=== PATIENT | female | born 1980 | race Caucasian/White ===

== ENCOUNTER → 2021-02-27 13:02 | Outpatient (CLI) | payer BC, SELFPAY ==
--- NOTE | ~2021-02-27 | XR_ITS ---
XR lumbar spine 2-3V 02/27/2021 13:27 Indication: Low back pain Procedure: 3 views lumbar spine Comparison: No prior studies for comparison. Findings: Normal lumbar lordosis. Vertebral body and disc heights are preserved. Pedicles intact. Sac ral foramen are symmetric. No fracture, subluxation or spondylolisthesis. Impression: 1: Mild lumbar spondylosis. Reviewed, dictated and finalized at location A. Impression: 1: Mild lumbar spondylosis.
== END ==
PROVIDERS: PCP Family Medicine
DX: M47.26 Other spondylosis with radiculopathy, lumbar region (principal)
CPT/HCPCS: 72100

== ENCOUNTER → 2021-03-15 09:48 | Outpatient (CLI) | payer BC, SELFPAY ==
--- NOTE | ~2021-03-15 | MR_ITS ---
EXAMINATION: MR lumbar spine wo con DATE: 03/15/2021 10:33 INDICATION: Low back pain. TECHNIQUE: Magnetic resonance imaging (MRI) of the lumbar spine was performed without intravenous con trast. Sequences included sagittal T2-weighted FSE, sagittal T2-weighted FS FSE, sagittal T1-weighted FSE, and axial T2-weighted FSE. COMPARISON: Lumbar spine radiographs 02/27/2021 FINDINGS: Bone alignment is normal. Vertebral body heights are normal. Intervertebral disc heights ar e normal. The distal spinal cord signal intensity is normal. The conus medullaris is at L1-L2. The fo llowing disc levels are specifically discussed: L1-L2: The disc does not extend beyond the endplate margin. There is mild bilateral facet joint osteo arthritis. There is no neural foraminal stenosis. There is no central canal stenosis. L2-L3: The disc is mildly bulging. There is mild bilateral facet joint osteoarthritis. There is mild right neural foraminal stenosis. There is no central canal stenosis. L3-L4: The disc is bulging and abuts the left L4 nerve root in left lateral recess. There is mild layton ateral facet joint osteoarthritis. There is mild right and moderate left neural foraminal stenosis. T here is mild central canal stenosis with asymmetric stenosis of left lateral recess. L4-L5: The disc is bulging. There is mild bilateral facet joint osteoarthritis. There is mild bilater al neural foraminal stenosis. There is mild central canal stenosis. L5-S1: The disc is bulging. There is mild bilateral facet joint osteoarthritis. There is mild bilater al neural foraminal stenosis. There is mild central canal stenosis. IMPRESSION: 1. Moderate spondylosis at L3-L4 and mild spondylosis at other levels. Reviewed, dictated and finalized at location A.
== END ==
PROVIDERS: PCP Family Medicine; Visit Provider Chiropractor
DX: M54.5 Low back pain (principal); M47.816 Spondylosis without myelopathy or radiculopathy, lumbar region
CPT/HCPCS: 72148

== ENCOUNTER 2021-03-25 09:49 | Outpatient (CLI) | payer BC, SELFPAY ==
--- NOTE | 2021-03-25 10:02 | ECG_ITS ---
Measurements Intervals [place] Rate: 58 P: 30 NE: 142 QRS: -10 QRSD: 104 T: 15 QT: 383 QTc: 378 Interpretive Statements SINUS BRADYCARDIA INCOMPLETE RIGHT BUNDLE BRANCH BLOCK BORDERLINE ECG Electronically Signed On 03-25-2021 12:22:32 CDT by Rory Jefferson D.O.
== END 2021-03-25 09:50 | disposition home or self-care (01) ==
LOC: ANHCARD 09:51
PROVIDERS: PCP Family Medicine; Visit Provider Physician Assistant
DX: R07.9 Chest pain, unspecified (principal)
CPT/HCPCS: 93005

== ENCOUNTER 2022-04-02 16:38 | Outpatient (CLI) | payer BC, SELFPAY ==
--- NOTE | ~2022-04-02 | MM_ITS ---
EXAMINATION: MM screening [facility] BI w karen HISTORY: Screening TECHNIQUE: Craniocaudal and mediolateral oblique 3-D tomosynthesis images were obtained and synthetic 2-D images were generated. CAD analysis was submitted and interpreted. COMPARISON: Comparison to multiple prior studies sequentially, with oldest reviewed study dated 04/2018. BREAST PARENCHYMAL COMPOSITION: Breast composed of scattered areas of fibroglandular density FINDINGS: There is no evidence of suspicious mass, calcification, or architectural distortion to sugg est malignancy in either breast. There has been no suspicious interval change. IMPRESSION: 1. No mammographic evidence of malignancy. 2. Recommend routine screening mammography in one year. BI-RADS Category 1: Negative Reviewed, dictated and finalized at location A.
== END 2022-04-02 16:39 | disposition home or self-care (01) ==
PROVIDERS: PCP Family Medicine; Visit Provider Obstetrics & Gynecology Gynecology
DX: Z12.31 Encounter for screening mammogram for malignant neoplasm of breast (principal)
CPT/HCPCS: 77063; 77067

== ENCOUNTER 2022-04-21 00:21 | Day surgery (SDC) | payer BC, SELFPAY ==
[2022-04-16 14:31] VITALS: BMI 30.2
--- NOTE | 2022-04-16 14:47 | PC.NURSE ---
Report to the Outpatient Waiting Room, entrance under the green pavilion located off [facility], at time __0800 on date _04/21/22 . OR Time: __1000 . WE WILL CALL YOU ON Thu04/18/22 IF YOUR SUEGERY TIME IS CHANGED - You and your visitor will be asked a series of questions to screen for COVID 19 for your protection. - Only one visitor is allowed at this time. - The patient visitor is requested to leave or wait in car when not with patient. - A mask is required within the hospital. Patients may have clear liquids (water, carbonated beverages, clear teas, apple juice) until 3 hours prior to surgery with a maximum of 20 ounces. - No food from midnight until time of surgery - Infants may have breast milk until 4 hours before surgery, formula 6 hours prior to surgery. - Children will be allowed to drink immediately following surgery. If applicable, please bring a bottle or sippy cup to assist with drinking. Juice, water, soda, and popsicles are readily available. For infants on formula, please bring formula the day of surgery. Pacifiers are allowed. Take the following medications with a SIP of water the morning of surgery: ____N/A Medications to discontinue per physician N/A Date to take last dose Please no make-up, nail austrian, hairspray, perfume, deodorant, or body powder the day of surgery. No jewelry (including any body piercings) or valuables the day of surgery, leave them at home. Please take a shower or bath the night before, or the morning of, surgery with an antibacterial soap. Wear comfortable, loose fitting clothing. Children are encouraged to wear pajamas. - Jewelry must be removed prior to entering the operating room. Rings and piercings that are not removed may be cut off. - The hospital will not accept responsibility for valuables. - Please leave all valuables, including medications, at home the day of surgery. If you are going home after surgery, a licensed furniture mover driver must drive you home. - NO public transportation without another adult. - We recommend that an adult stay with you for 24 hours following discharge. - We also recommend that you do not drive, make important decision, drink alcoholic beverages, or take any drugs that were not prescribed by your health care provider for at least 24 hours after your discharge time. For Pediatric surgeries, we recommend two adults accompany the child home (only one inside the building at this time). Follow any additional instructions given to you from your surgeon. If you or anyone in your household have experienced Covid symptoms in the past week, please notify your surgeon or the nurse liaison at the phone number below for possible testing. Telephone instructions given to _EVETTE and asked if any additional questions and then verbalized understanding. Patient advised to call surgeon office or pre surgery nurse liaison [phone] if any additional questions.
--- NOTE | 2022-04-21 07:31 | WPDHPUPDATE1 ---
History and Physical Update Update Date/Time: 04/21/22 07:31 History and Physical has been reviewed, including an updated exam of the patient. There are NO changes in the patient's condition. Risks, benefits, and alternatives have been discussed and questions answered. Patient agrees to proceed with procedure.
--- NOTE | 2022-04-21 07:31 | PM.HPGS ---
History of Present Illness History of Present Illness Consent: Risks, benefits, and alternatives have been discussed and questions answered. Patient agrees to proceed with procedure. Chief complaint: menorrhagia, post coital bleeding Narrative: Deidra La is a 41 year old female with menorrhagia and postcoital bleeding. Patient had a Pap and colposcopy which were normal. In addition the patient had an endometrial biopsy which was benign. Treatment options were reviewed. The patient has decided to proceed with endometrial ablation for menorrhagia and cervical ablation for postcoital bleeding. Risks of infection, bleeding, perforation, and failure were reviewed. Patient voices understanding and agrees to proceed. Review of Systems Review of Systems: not repeated day of surgery; patient states no changes in status PMFSH Past Medical History Medical History (Updated 04/21/22 @ 07:49 by Meche Ward MD) (normal spontaneous vaginal delivery) X2 Vacuum-assisted vaginal delivery X1 Surgical History Surgical History (Updated 04/21/22 @ 07:48 by Meche Ward MD) H/O LEEP 2017 for mild dysplasia H/O tubal ligation History of hysteroscopy With D&C 2017 benign Family History Family History Mother Hypertension Father Hypertension Sibling Asthma, Onset Age: 32 Social History Social History Second hand tobacco smoke exposure: No Alcohol intake: never Substance use: current Substance use type: does not use Living arrangements: with family Spiritual care concerns: No Meds Home Medications and Allergies Home Medications Medication Instructions Recorded Confirmed Type famotidine 20 mg tablet 20 mg PO DAILY #90 tabs 01/22/22 04/16/22 Rx Allergies Allergy/AdvReac Type Severity Reaction Status Date / Time meperidine Allergy Mild RESPIR. Verified 04/16/22 14:44 DISTRESS Penicillins Allergy Unknown Unknown Verified 04/16/22 14:44 adhesive tape AdvReac Mild REDNESS TO Verified 04/16/22 14:44 AREA IF ON FOR AWHILE Exam Const: General: healthy appearing and alert Orientation/consciousness: patient oriented x3 Resp: Effort & Inspection: normal respiratory effort Auscultation: clear to auscultation bilaterally Cardio: Rate: regular rate Rhythm: regular rhythm GI: GI Palp: Yes Soft to palpation, No Tenderness to palpation present (GI) and No Palpable mass present : External Female Exam: normal external appearance Speculum Exam - Vagina: normal appearance of the vagina and normal vaginal discharge Speculum Exam - Cervix: normal appearance of the cervix Bimanual exam- vagina & uterus: uterine size normal and consistency normal Bimanual Exam- Adnexa, other: normal adnexae and No adnexal tenderness Neuro: General: patient oriented x3 Assessment and Plan Assessment and plan (1) Menorrhagia: Code(s): N92.0 - Excessive and frequent menstruation with regular cycle Status: Acute Assessment and Plan: Plan to proceed with hysteroscopy and Karissa endometrial ablation (2) Postcoital bleeding: Code(s): N93.0 - Postcoital and contact bleeding Status: Acute Assessment and Plan: Plan to proceed with cervical ablation
--- NOTE | 2022-04-21 08:31 | P.PNAN_ITS ---
Anes - Initial Pre Proc Eval Procedure: Operation Date: 04/21/22 10:00 Proposed Procedures p Hysteroscopy with Karissa Endometrial Ablation, Cervical Ablation - Meche Ward MD Date/Time: 04/21/22 08:31 Surgeon: Meche Ward MD Pre Op Diagnosis: menorrhagia, post coital bleeding Patient Data Age: 41 Gender: F Height: 1.73 m Weight: 90 kg Allergies Allergy/AdvReac Type Severity Reaction Status Date / Time meperidine Allergy Mild RESPIR. Verified 04/16/22 14:44 DISTRESS Penicillins Allergy Unknown Unknown Verified 04/16/22 14:44 adhesive tape AdvReac Mild REDNESS TO Verified 04/16/22 14:44 AREA IF ON FOR AWHILE Home Medications Medication Instructions Recorded Confirmed Type famotidine 20 mg tablet 20 mg PO DAILY #90 tabs 01/22/22 04/16/22 Rx Patient hx anesthesia problems: none Family hx anesthesia problems: none Results Review: All pre-operative results and documents have been reviewed as part of the pre- operative evaluation. [facility] Surgical History Surgical History H/O LEEP 2017 for mild dysplasia H/O tubal ligation History of hysteroscopy With D&C 2017 benign Family History Family History Mother Hypertension Father Hypertension Sibling Asthma, Onset Age: 32 Social History Social History Second hand tobacco smoke exposure: No Alcohol intake: never Substance use: current Substance use type: does not use Living arrangements: with family Spiritual care concerns: No Anes - Eval Final PreProcedure Day of Procedure 04/21/22 08:31 Patient weight: overweight Heart: regular rate and rhythm Lungs: clear to auscultation Airway: Mallampati scale class II Neurological: alert and oriented Last oral intake: >/= 8 hours ASA classification: II Emergent: no Anesthetic plan: proceed Anesthesia type and monitoring: general GIVS and standard monitoring Results Review: All pre-operative results and documents have been reviewed as part of the pre- operative evaluation. Informed Consent: The patient's anesthetic plan and its attendant risks and benefits were discussed with the patient/family/POA. Questions were solicited and answers provided to the satisfaction of the patient/family/POA.
[2022-04-21] MEDS: LACTATED RINGERS 1,000 ML 30 ML IV CONT (09:00)
[2022-04-21] MEDS: ACETAMINOPHEN 500 MG TABLET 1000 MG PO (09:00)
[2022-04-21 09:18] VITALS: BP 120/70; PULSE 72; RESP 16; TEMP 37.1; O2SAT 100
[2022-04-21] MEDS: LIDO 1%/EPINEPHRINE 1:100,000 10 ML VIAL INFILTRATE (09:50)
--- NOTE | 2022-04-21 09:55 | W.PM.PROC2 ---
Procedure Note - Detailed Date of Procedure 04/21/22 Pre-op Diagnosis menorrhagia, post coital bleeding Post-op Diagnosis Same Procedure Performed hysteroscopy with Karissa endometrial ablation; cervical ablation Surgeon Meche Ward MD Anesthesia MAC and Local Findings normal-appearing endometrium with the uterus sounded to 8cm Description of Procedure The patient was taken to the operating room and placed under anesthesia in the dorsal lithotomy position. She was prepped and draped in the usual sterile fashion. [place] speculum was placed in the vagina and the cervix grasped on the anterior lip with a tenaculum. The cervix was injected with 1% lidocaine with epinephrine. The uterus is sounded to 8cm. The cervix is serially dilated to an 8 Hegar. The diagnostic hysteroscope was placed with the above-stated findings. The hysteroscope was removed and the Karissa device opened and placed. It was set on 5cm. Cavity assessment passed on the 1st attempt and the treatment cycle lasted the entire 2minutes. The device is removed and the hysteroscope replaced. Good ablation effect is noted. The hysteroscope was removed. The tenaculum is removed. The ball electrode was then used at 45 w of coagulation to coagulate the cervix with approximately a 1cm radius around the os. All instruments were then removed. Sponge, needle, and instrument counts are correct per the OR staff. The patient is awakened from anesthesia and taken to recovery in stable condition. Estimated Blood Loss 5 Drains No Packing No Pathology None sent Complications No immediate complications Condition Stable Disposition PACU
[2022-04-21 09:56] VITALS: BP 111/62; PULSE 77; RESP 16; O2SAT 98
[2022-04-21 10:26] VITALS: BP 116/64; PULSE 75; RESP 16
[2022-04-21] MEDS: ARTIFICIAL TEARS OPHTH SOLN 15 ML BOTTLE 1 DROP EACH EYE (10:26)
[2022-04-21] MEDS: oxyCODONE HCL (*CRX) 5 MG TAB IR PO (10:26)
[2022-04-21] MEDS: fentaNYL CITRATE INJ (*CRX) 100 MCG/2 ML VIAL 25 MCG IV PUSH ×3 (10:50→11:45)
[2022-04-21 10:56] VITALS: BP 112/42; PULSE 82; RESP 16
[2022-04-21] MEDS: ONDANSETRON INJ 4 MG/2 ML VIAL IV PUSH (11:17)
[2022-04-21 11:26] VITALS: BP 134/64; PULSE 84; RESP 16
--- NOTE | 2022-04-21 11:35 | SUR.PHASEII ---
Paged Dr. Ward regarding patient's increased pain after procedure and patient requesting prescription for pain medication upon discharge.
[2022-04-21 11:49] VITALS: BP 126/63; PULSE 75; RESP 16
== END 2022-04-21 11:55 | disposition home or self-care (01) ==
PROVIDERS: PCP Family Medicine; Visit Provider Obstetrics & Gynecology Gynecology
PROC: 0U5B8ZZ Destruction of Endometrium, Via Natural or Artificial Opening Endoscopic (ICD-10-PCS; CPT 58563; principal; 2022-04-21 10:00)
DX: N92.0 Excessive and frequent menstruation with regular cycle (principal); N93.0 Postcoital and contact bleeding
CPT/HCPCS: 58563; 57510; A9270; J2250; J2405; J2704; J3010; J7030; J7120

== ENCOUNTER → 2022-08-05 12:25 | Outpatient (CLI) | payer BC, SELFPAY ==
--- NOTE | ~2022-08-05 | XR_ITS ---
XR ankle LT 2V DATE: 08/05/2022 13:04 INDICATION: Injury. Pain, swelling of left ankle TECHNIQUE: 2 views COMPARISON: None FINDINGS: There is prominent anterolateral soft tissue swelling of the left ankle. No fracture or dis location of the ankle or disruption of the ankle mortise is detected. IMPRESSION: Prominent anterolateral soft tissue swelling; no fracture or dislocation Reviewed, dictated and finalized at location A. IMPRESSION: Prominent anterolateral soft tissue swelling; no fracture or disloc ation
--- NOTE | ~2022-08-05 | XR_ITS ---
XR knee LT 2V DATE: 08/05/2022 13:04 INDICATION: Injury. Knee pain and swelling. TECHNIQUE: AP and lateral views COMPARISON: 08/02/2018 left knee FINDINGS: There is mild to moderate peridiscal spurring of the patella consistent with osteoarthritis . Medial lateral compartment joint spaces are well preserved. No fracture or dislocation or joint effusion. No periosteal reaction or bone destruction. No radiopaq ue intra-articular loose body or chondral calcinosis. IMPRESSION: Mild patellofemoral osteoarthritis Reviewed, dictated and finalized at location A.
== END ==
PROVIDERS: PCP Family Medicine; Visit Provider Chiropractor
DX: M79.89 Other specified soft tissue disorders (principal); M17.12 Unilateral primary osteoarthritis, left knee
CPT/HCPCS: 73560; 73600

== ENCOUNTER → 2022-09-03 10:38 | Outpatient (CLI) | payer BC, SELFPAY ==
--- NOTE | ~2022-09-03 | MR_ITS ---
EXAMINATION: MR knee LT wo con DATE: 09/03/2022 11:19 INDICATION: Left knee pain. TECHNIQUE: Magnetic resonance imaging (MRI) of the left knee was performed without intravenous contra st. Sequences included axial PD-weighted FS FSE, coronal PD-weighted FSE and PD-weighted FS FSE, sagi ttal PD-weighted FSE, and sagittal T2-weighted FS FSE. COMPARISON: Left knee radiographs 08/05/2022 FINDINGS: Medial compartment: Medial meniscus is normal. Medial compartment cartilage is normal. There are tiny osteophytes. Lateral compartment: Lateral meniscus is normal. There is shallow partial-thickness cartilage loss of tibial condyle invol ving the central articular surface with mild subchondral edema-like marrow signal intensity. Femoral cartilage is normal. There are tiny osteophytes. Patellofemoral compartment: There is full-thickness cartilage loss of patellar lateral facet and partial thickness cartilage loss of patellar medial facet with moderate subchondral edema-like marrow signal intensity. There is full -thickness cartilage loss of proximal lateral trochlea with mild subchondral edema-like marrow signal intensity. Osteophytes are noted. Ligaments and tendons: The anterior and posterior cruciate ligaments are normal. Medial collateral ligament is normal. There is edema subjacent to the iliotibial band, which may be seen with iliotibial band friction syndrome. There is mild patellar tendinopathy. Fluid: There is a small knee joint effusion. There is trace fluid in a Mike's cyst. There is mild superfici al infrapatellar bursitis. IMPRESSION: 1. Severe chondrosis of patellofemoral compartment and mild chondrosis of lateral compartment. 2. Small knee joint effusion. 3. Edema subjacent to the iliotibial band, which may be seen with iliotibial band friction syndrome. Reviewed, dictated and finalized at location A. STER OF [place] IMPRESSION: 1. Severe chondrosis of patellofemoral compartment and mild chondrosis of later al compartment. 2. Small knee joint effusion. 3. Edema subjacent to the iliotibial band, which may be seen with iliotibial ba nd friction syndrome.
== END ==
PROVIDERS: PCP Family Medicine; Visit Provider Nurse Practitioner Family
DX: M25.562 Pain in left knee (principal); M22.2X2 Patellofemoral disorders, left knee; M25.462 Effusion, left knee; R60.9 Edema, unspecified
CPT/HCPCS: 73721

== ENCOUNTER → 2023-08-26 14:58 | Outpatient (CLI) | payer BC, SELFPAY ==
--- NOTE | ~2023-08-26 | XR_ITS ---
XR hand BI arthritis min 3V DATE: 08/26/2023 15:42 INDICATION: Osteoarthritis TECHNIQUE: 4 views of each hand COMPARISON: None FINDINGS: No fracture, dislocation, periosteal reaction or bone destruction, erosive change, signific ant joint space narrowing or chondrocalcinosis of either hand. IMPRESSION: Negative Reviewed, dictated and finalized at location A. EL SPRAYER IMPRESSION: Negative
--- NOTE | ~2023-08-26 | XR_ITS ---
XR foot LT standing 2V DATE: 08/26/2023 15:42 INDICATION: Osteoarthritis TECHNIQUE: Standing AP and lateral views COMPARISON: None FINDINGS: No fracture or dislocation, periosteal reaction or bone destruction or other significant ab normality. Joint spaces are preserved. IMPRESSION: Negative Reviewed, dictated and finalized at location A. ND WATER PUMP INSTALLER IMPRESSION: Negative
--- NOTE | ~2023-08-26 | XR_ITS ---
XR lumbar spine min 4V DATE: 08/26/2023 15:42 INDICATION: Osteoarthritis. Pain. TECHNIQUE: AP, lateral, bilateral oblique views, coned lateral lumbosacral view COMPARISON: None FINDINGS: The lumbar vertebrae are normally aligned. No fracture or bone destruction, spondylolysis o r spondylolisthesis. There is slight degenerative spurring at L3-4. Lumbar and lumbosacral interspace s are well preserved. The sacroiliac joints are intact. IMPRESSION: Minimal degenerative spurring at L3-4 Reviewed, dictated and finalized at location A. SHOVER
--- NOTE | ~2023-08-26 | XR_ITS ---
XR foot RT standing 2V DATE: 08/26/2023 15:42 INDICATION: Osteoarthritis TECHNIQUE: Standing AP and lateral views COMPARISON: None FINDINGS: There is slight plantar calcaneal enthesopathy. There is an old ununited intra-articular corner fracture of the medial head of the proximal phalanx o f the fifth toe. No recent fracture or dislocation. No periosteal reaction or bone destruction. Joint spaces appear re latively preserved. 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 RICT EXTENSION SERVICE AGENT IMPRESSION: Old ununited intra-articular fracture of the medial head of the pro ximal phalanx of the fifth toe Slight plantar calcaneal enthesopathy
--- NOTE | ~2023-08-26 | XR_ITS ---
EXAMINATION: XR sacroiliac joints min 3V INDICATION: Unspecified osteoarthritis TECHNIQUE: Three views of the sacroiliac joints are obtained. COMPARISON: None available FINDINGS: Bone alignment is normal. There is no fracture. No abnormal erosion or sclerosis of the sac roiliac joints identified. Tubal ligation clips are noted. IMPRESSION: 1. No acute osseous abnormality. Reviewed, dictated and finalized at location F. RNAL MEDICINE PHYSICIAN
== END ==
PROVIDERS: Visit Provider Internal Medicine
DX: M19.90 Unspecified osteoarthritis, unspecified site (principal)
CPT/HCPCS: 72110; 72202; 73130; 73620

== ENCOUNTER 2023-09-15 00:55 | Day surgery (SDC) | payer BC, SELFPAY ==
[2023-09-02 11:22] VITALS: BMI 32.5
--- NOTE | 2023-09-11 14:18 | SUR.PREOP ---
Patient called regarding upcoming procedure. Reviewed preop instructions, appointment times, and procedure prep.
[2023-09-15 11:04] VITALS: BP 123/64; PULSE 65; RESP 20; TEMP 36.4; O2SAT 100
[2023-09-15] MEDS: LACTATED RINGERS 1,000 ML 150 ML IV CONT (11:06)
--- NOTE | 2023-09-15 12:24 | WPDANESEPPF ---
Anes - Initial Pre Proc Eval Procedure: Operation Date: 09/15/23 12:30 Proposed Procedures p Esophagogastroduodenoscopy & Colonoscopy - Yoshi Noonan MD Date/Time: 09/15/23 12:24 Surgeon: Yoshi Noonan MD Pre Op Diagnosis: epigastric pain, other chest pain Patient Data Age: 43 Gender: F Height: 1.73 m Weight: 93.4 kg Last Vital Signs Temp 97.6 F 09/15/23 11:04 Pulse 65 09/15/23 11:04 Resp 20 09/15/23 11:04 BP 123/64 09/15/23 11:04 Pulse Ox 100 09/15/23 11:04 O2 Del Method Room Air 09/15/23 11:04 Allergies Allergy/AdvReac Type Severity Reaction Status Date / Time meperidine Allergy Mild RESPIR. Verified 09/15/23 11:02 DISTRESS Penicillins Allergy Unknown Unknown Verified 09/15/23 11:02 adhesive tape AdvReac Mild REDNESS TO Verified 09/15/23 11:02 AREA IF ON FOR AWHILE Home Medications Medication Instructions Recorded Confirmed Type hydrocortisone 2.5 % topical cream 1 applic RECTAL DAILY PRN 08/06/23 09/02/23 Rx with perineal applicator hemorrhoids #30 grams omeprazole 20 mg capsule,delayed 20 mg PO DAILY #30 caps 08/06/23 09/02/23 Rx release duloxetine 30 mg capsule,delayed 30 mg PO BID #60 caps 08/26/23 09/02/23 Rx release (Cymbalta) Patient hx anesthesia problems: none Family hx anesthesia problems: none Results Review: All pre-operative results and documents have been reviewed as part of the pre-operative evaluation. [facility] Past Medical History Medical History (Updated 09/10/23 @ 15:21 by Paulo Velasco MD) Anal fissure Atypical chest pain Bilateral hand pain Colon cancer screening Counseling on health promotion and disease prevention Encounter for medication management Epigastric burning sensation External hemorrhoids Family hx of colon cancer History of right tennis elbow Inflammatory arthritis IT band syndrome Lateral epicondylitis Left ankle sprain Left knee DJD Left knee pain Medial meniscus tear Right elbow pain Surgical History Surgical History H/O LEEP 2017 for mild dysplasia H/O tubal ligation History of hysteroscopy With D&C 2017 benign Family History Family History Mother Hypertension Father Hypertension Sibling Asthma, Onset Age: 32 Other Arthritis Social History Social History Smoking status: Never smoker Second hand tobacco smoke exposure: No Substance use type: does not use Lack of Transportation: No Lack of Food: Never True Current Housing: I Have Housing Concerned About Future Housing: No Difficulty Paying Gas/Electric Bills: No Difficulty Paying for Meds: No Currently Unemployed: No Education: Decline to Answer Difficulty w/ Childcare or Family Care: No Living arrangements: other Additional living arrangements comments: with sp Gender identity (if verbalized by the patient): Female Anes - Eval Final PreProcedure Day of Procedure 09/15/23 12:24 Patient weight: normal Heart: regular rate and rhythm Lungs: clear to auscultation Airway: Mallampati scale class II Neurological: alert and oriented Last oral intake: >/= 8 hours ASA classification: II Emergent: no Anesthetic plan: proceed Anesthesia type and monitoring: general GIVS and standard monitoring Results Review: All pre-operative results and documents have been reviewed as part of the pre-operative evaluation. Informed Consent: The patient's anesthetic plan and its attendant risks and benefits were discussed with the patient/family/POA. Questions were solicited and answers provided to the satisfaction of the patient/family/POA.
--- NOTE | 2023-09-15 12:25 | PM.HPGS ---
History of Present Illness History of Present Illness Consent: Risks, benefits, and alternatives have been discussed and questions answered. Patient agrees to proceed with procedure. Chief complaint: epigastric pain, other chest pain Narrative: Deidra La is a 43 year old female with dyspepsia and epigastric pain since had COVID, better since started using ppi, never had scopes. Review of Systems Constitutional: Constitutional: Denies headache(s) and Denies weakness Eyes: Eyes: Denies blurry vision ENT: Reports Normal hearing present, Denies headache(s) and Denies neck pain Cardiovascular: Cardiovascular: Denies chest pain and Denies dyspnea Respiratory: Respiratory: Denies dyspnea Gastrointestinal: Gastrointestinal: Reports no additional gastrointestinal complaints Genitourinary: Genitourinary: Denies dysuria Musculoskeletal: Musculoskeletal: Denies neck pain Integumentary/Breasts: Skin/Breast: Denies dry skin Neurologic: Reports Normal hearing present, Denies headache(s) and Denies weakness Psychiatric: Psychiatric: Denies anxiety Endocrine: Endocrine: Denies change in body appearance Hematologic/Lymphatic: Hematologic/Lymphatic: Denies easy bleeding Allergic/Immunologic: Allergic/Immunologic: Denies urticaria PMFSH Past Medical History Medical History (Updated 09/10/23 @ 15:21 by Paulo Velasco MD) Anal fissure Atypical chest pain Bilateral hand pain Colon cancer screening Counseling on health promotion and disease prevention Encounter for medication management Epigastric burning sensation External hemorrhoids Family hx of colon cancer History of right tennis elbow Inflammatory arthritis IT band syndrome Lateral epicondylitis Left ankle sprain Left knee DJD Left knee pain Medial meniscus tear Right elbow pain Surgical History Surgical History H/O LEEP 2017 for mild dysplasia H/O tubal ligation History of hysteroscopy With D&C 2017 benign Family History Family History Mother Hypertension Father Hypertension Sibling Asthma, Onset Age: 32 Other Arthritis Social History Social History Smoking status: Never smoker Second hand tobacco smoke exposure: No Substance use type: does not use Lack of Transportation: No Lack of Food: Never True Current Housing: I Have Housing Concerned About Future Housing: No Difficulty Paying Gas/Electric Bills: No Difficulty Paying for Meds: No Currently Unemployed: No Education: Decline to Answer Difficulty w/ Childcare or Family Care: No Living arrangements: other Additional living arrangements comments: with sp Gender identity (if verbalized by the patient): Female Meds Home Medications and Allergies Home Medications Medication Instructions Recorded Confirmed Type hydrocortisone 2.5 % topical cream 1 applic RECTAL DAILY PRN 08/06/23 09/02/23 Rx with perineal applicator hemorrhoids #30 grams omeprazole 20 mg capsule,delayed 20 mg PO DAILY #30 caps 08/06/23 09/02/23 Rx release duloxetine 30 mg capsule,delayed 30 mg PO BID #60 caps 08/26/23 09/02/23 Rx release (Cymbalta) Allergies Allergy/AdvReac Type Severity Reaction Status Date / Time meperidine Allergy Mild RESPIR. Verified 09/15/23 11:02 DISTRESS Penicillins Allergy Unknown Unknown Verified 09/15/23 11:02 adhesive tape AdvReac Mild REDNESS TO Verified 09/15/23 11:02 AREA IF ON FOR AWHILE Vital Signs Vital Signs - 24 hr 09/15/23 11:04 Temperature 97.6 F Pulse Rate 65 Respiratory Rate 20 Blood Pressure 123/64 Pulse Oximetry 100 Oxygen Delivery Room Air Exam Const: General: comfortable and no acute distress HENMT: Face/Nose/Sinus: Normal nares present Eyes: General: appearance normal, both eyes and all related structure
[2023-09-15 12:47] VITALS: BP 113/56; PULSE 78; RESP 22; O2SAT 100
[2023-09-15 12:57] VITALS: BP 126/76; PULSE 74; RESP 22; O2SAT 100
[2023-09-15 13:07] VITALS: BP 132/74; PULSE 70; RESP 20; O2SAT 99
== END 2023-09-15 13:24 | disposition home or self-care (01) ==
PROVIDERS: Visit Provider Internal Medicine Gastroenterology
PROC: 0DJ08ZZ Inspection of Upper Intestinal Tract, Via Natural or Artificial Opening Endoscopic (ICD-10-PCS; CPT 43235; principal; 2023-09-15 12:30)
DX: Z12.11 Encounter for screening for malignant neoplasm of colon (principal); K64.8 Other hemorrhoids; Z80.0 Family history of malignant neoplasm of digestive organs; K44.9 Diaphragmatic hernia without obstruction or gangrene; K29.50 Unspecified chronic gastritis without bleeding
CPT/HCPCS: 45378; 43239; 88305; J2704; J7120

== ENCOUNTER 2024-03-04 13:04 | Outpatient (CLI) | payer OTHER, SELFPAY ==
--- NOTE | 2024-03-04 14:40 | ECG_ITS ---
[facility] [address] Test Date: 2024-03-04 Pat Name: Deidra La Department: Room: Gender: F [employer] [place]: : 1980 Requested By: Herminio Braxton Order Number: [id number] Robert MD: Rory Jefferson D.O. Measurements Intervals Pi[place]on Rate: 65 P: 41 MS: 143 QRS: -12 QRSD: 99 T: 2 QT: 375 QTc: 391 Interpretive Statements SINUS RHYTHM INCOMPLETE RIGHT BUNDLE BRANCH BLOCK LOW QRS VOLTAGE IN PRECORDIAL LEADS PATTERN CONSISTENT WITH PULMONARY DISEASE INFERIOR INFARCT, AGE INDETERMINATE BASELINE ARTIFACT- I, II, III, AVR, AVL, AVF ABNORMAL ECG No previous ECG available for comparison Electronically Signed On 03-04-2024 14:53:05 CDT by Rory Jefferson D.O.
[2024-03-04 15:09] LABS: Hematocrit 39.6 % (37.0-47.0); Hemoglobin 13.1 g/dL (12.0-15.0)
== END 2024-03-04 13:05 | disposition home or self-care (01) ==
PROVIDERS: Anesthesiology; PCP Family Medicine; Visit Provider Surgery Plastic and Reconstructive Surgery
DX: Z01.818 Encounter for other preprocedural examination (principal); I45.10 Unspecified right bundle-branch block; R94.31 Abnormal electrocardiogram [ECG] [EKG]; Z41.1 Encounter for cosmetic surgery
CPT/HCPCS: 36415; 85014; 85018; 93005

== ENCOUNTER 2024-03-15 01:32 | Day surgery (SDC) | payer OTHER, SELFPAY ==
[2024-03-03 13:53] VITALS: BMI 30.4
--- NOTE | 2024-03-03 13:59 | PC.NURSE ---
Report to the Outpatient Waiting Room, entrance under the green pavilion located off [facility], at time _0600_ on date _[id number]_. Planned Procedure Time: _0730_. Time changes happen often and if your time is changed the preop area will call you the afternoon before. - You and your visitor will be asked to self-screen and do not enter if you have any COVID symptoms. - A mask is optional within the hospital at this time. Patients may have clear liquids (water, carbonated beverages, clear teas, apple juice) until 3 hours prior to surgery with a maximum of 20 ounces. - No food from midnight until time of surgery Take the following medications with a SIP of water the morning of surgery: __None DO NOT STOP ANY OF YOUR OTHER PRESCRIPTION MEDICATIONS PRIOR TO SURGERY ?EXCEPT THE FOLLOWING Medications to discontinue per physician ____None Date to take last dose Please no make-up, nail azerbaijani, hairspray, perfume, deodorant, or body powder the day of surgery. No jewelry (including any body piercings) or valuables the day of surgery, leave them at home. Please take a shower or bath the night before, or the morning of, surgery with an antibacterial soap. Wear comfortable, loose fitting clothing. - Jewelry must be removed prior to entering the operating room. Rings and piercings that are not removed may be cut off. - The hospital will not accept responsibility for valuables. - Please leave all valuables, including medications, at home the day of surgery. If you are going home after surgery, a licensed limo driver must drive you home. - NO public transportation without another adult if you receive anesthesia. - We recommend that an adult stay with you for 24 hours following discharge. - We also recommend that you do not drive, make important decision, drink alcoholic beverages, or take any drugs that were not prescribed by your health care provider for at least 24 hours after your discharge time. Follow any additional instructions given to you from your surgeon. If you or anyone in your household have experienced Covid symptoms in the past week, please notify your surgeon or the nurse liaison at the phone number below for possible testing. Telephone instructions given to _Deidra_and asked if any additional questions and then verbalized understanding. Patient advised to call surgeon office or pre surgery nurse liaison [phone] if any additional questions.
[2024-03-15] VITALS (12 sets, daily range): BP systolic 130–155; BP diastolic 64–89; PULSE 63–84; RESP 13–20; TEMP 36.2–36.8; O2SAT 96–100
[2024-03-15 06:46] LABS: Urine Cotinine NEGATIVE
--- NOTE | 2024-03-15 06:59 | WPDHPUPDATE1 ---
History and Physical Update Update Date/Time: 03/15/24 06:59 History and Physical has been reviewed, including an updated exam of the patient. There are NO changes in the patient's condition. Risks, benefits, and alternatives have been discussed and questions answered. Patient agrees to proceed with procedure.
[2024-03-15] MEDS: LACTATED RINGERS 1,000 ML 30 ML IV CONT ×2 (07:00→14:54)
--- NOTE | 2024-03-15 07:00 | W.PM.PROC2 ---
Procedure Note - Detailed Date of Procedure 03/15/24 Pre-op Diagnosis skin laxity Post-op Diagnosis Same Procedure Performed 1. Kelli yadav abdominoplasty 2. Bilateral brachioplasty Surgeon Corey Johnson MD Anesthesia General Findings Tissue removed: 3516 grams Lipoaspirate: 4,200 cc (3,000 cc of adipose tissue) Description of Procedure They are here today for the above procedures. Previously and again today the risks, benefits, alternatives were discussed in extensive detail. I wanted them to be very realistic about the risks involved as well as expectations. We discussed aftercare and what to monitor for. I was very upfront about the risks of wound breakdown leading to loss of skin, open wounds, and need for additional procedures with permanent abdominal deformity. We discussed DVT/PE risks and management. Made sure answered all of their questions to their satisfaction today and consent was obtained. They were marked in the preoperative holding area with their verification. The patient was taken to the operating room. Anesthesia was provided by anesthesiology. A Herman catheter was started. Posterior Placed prone on the operating room table with care taken to protect from injury. Prepped and draped in a standard sterile fashion. A surgical time-out was taken. Stab incisions were made and tumescent solution was infiltrated. Once adequate time was allowed for hemostasis a 5mm basket and 3mm multi hole cannula were utilized to complete suction lipectomy based on S.A.F.E. technique in multiple planes and passes. Suction lipectomy continued to result based on pre-operative planning, intra-operative observation, and rolling pinch test which were in full agreement. Sites closed with 4-0 Nylon. Arms Patient was then placed supine with care taken to protect from injury. Stab incisions were made and I tumesced with a tumescent solution. Once adequate time for hemostasis suction lipectomy was with a 4 mm basket cannula based on S.A.F.E. technique. This was completed based on preoperative planning, intraoperative observation, and rolling pinch test which was in full agreement. I completely de-fatted the planned resection area and a strip avulsion technique was completed. Starting proximal to distal a 10 blade was used to excise the intervening skin and this was tacked as we proceed to ensure good closure. This was closed using a 2-0 Quill, 3-0 strata fix, running subcuticular 4-0 Monocryl, and tissue glue. Abdomen I placed the patient in a flexed position to verify the upper and lower markings would reach. Verified my planned vertical reseection at the same time. I then placed supine. A thorough abdominal examination was completed. Stab incisions were made and tumescent solution infiltrated. Stab incisions were made and tumescent solution was infiltrated. Once adequate time was allowed for hemostasis a 5mm basket and 3mm multi hole cannula were utilized to complete suction lipectomy based on S.A.F.E. technique in multiple planes and passes. Suction lipectomy continued to result based on pre-operative planning, intra-operative observation, and rolling pinch test which were in full agreement. A 10 blade was used to make the upper incision as well as along the vertical. I continued dissection down to the level of fascia. Elevated just what was necessary for repair of the diastasis, there was no undermining. I then again flexed the bed to verify the upper skin flap would reach the lower markings without tension. Once verified I placed her supine once again and a 10 blade used to make the lower incision. I elevated up to level the umbilicus and left the umbilicus intact on a well-vascularized stalk. The intervening tissue was removed. A 2 mm blunt cannula with 0.5% bupivacaine was injected deep to the fascia bilaterally. I plicated the diastasis recti using 0 PDO Stratafix barbed suture. This was in 2 separate layers
--- NOTE | 2024-03-15 07:06 | WPDANESEPPF ---
Anes - Initial Pre Proc Eval Procedure: Operation Date: 03/15/24 07:30 Proposed Procedures p Kelli De Nisha Abdominoplasty with Liposuction - Corey Johnson MD s Bilateral Brachioplasty - Corey Johnson MD Date/Time: 03/15/24 07:06 Surgeon: Corey Johnson MD Pre Op Diagnosis: skin laxity Patient Data Age: 43 Gender: F Height: 1.73 m Weight: 90.9 kg Allergies Allergy/AdvReac Type Severity Reaction Status Date / Time meperidine Allergy Mild RESPIR. Verified 03/15/24 06:31 DISTRESS Penicillins Allergy Unknown Unknown Verified 03/15/24 06:31 adhesive tape AdvReac Mild REDNESS TO Verified 03/15/24 06:31 AREA IF ON FOR AWHILE Home Medications Medication Instructions Recorded Confirmed Type famotidine 20 mg tablet 20 mg PO DAILY #90 tabs 12/24/23 03/15/24 Rx Laboratory Tests 03/15/24 06:26 Cotinine Negative Patient hx anesthesia problems: none Family hx anesthesia problems: none Results Review: All pre-operative results and documents have been reviewed as part of the pre-operative evaluation. [facility] Past Medical History Medical History Anal fissure Atypical chest pain Bilateral hand pain Colon cancer screening Counseling on health promotion and disease prevention Encounter for medication management Epigastric burning sensation External hemorrhoids Family hx of colon cancer History of right tennis elbow Inflammatory arthritis IT band syndrome Lateral epicondylitis Left ankle sprain Left knee DJD Left knee pain Medial meniscus tear Right elbow pain Surgical History Surgical History H/O LEEP 2017 for mild dysplasia H/O tubal ligation History of hysteroscopy With D&C 2017 benign Family History Family History Mother Hypertension Father Hypertension Sibling Asthma, Onset Age: 32 Other Arthritis Social History Social History Smoking status: Never smoker Second hand tobacco smoke exposure: No Substance use type: does not use Lack of Transportation: No Lack of Food: Never True Current Housing: I Have Housing Concerned About Future Housing: No Difficulty Paying Gas/Electric Bills: No Difficulty Paying for Meds: No Currently Unemployed: No Education: Decline to Answer Difficulty w/ Childcare or Family Care: No Living arrangements: with family Additional living arrangements comments: with sp Gender identity (if verbalized by the patient): Female Spiritual care concerns: No Anes - Eval Final PreProcedure Day of Procedure 03/15/24 07:06 Patient weight: obese Heart: regular rate and rhythm Lungs: clear to auscultation Airway: Mallampati scale class II Neurological: alert and oriented Last oral intake: >/= 8 hours ASA classification: II Emergent: no Anesthetic plan: proceed Anesthesia type and monitoring: general ETT and standard monitoring Results Review: All pre-operative results and documents have been reviewed as part of the pre-operative evaluation. Informed Consent: The patient's anesthetic plan and its attendant risks and benefits were discussed with the patient/family/POA. Questions were solicited and answers provided to the satisfaction of the patient/family/POA.
[2024-03-15] MEDS: TRANEXAMIC ACID 1,000MG/ISO100 1,000 MG/100 ML BAG 200 MG IVPB (07:31)
[2024-03-15] MEDS: BUPIVACAINE/EPINEPHRINE 0.5% 10 ML VIAL 60 ML INFILTRATE (07:37)
[2024-03-15] MEDS: LACTATED RINGERS IRRIG 1,000 ML, LIDOCAINE HCL 1% LOCAL INJ 50 ML, EPINEPHrine HCL INJ ... INFILTRATE (07:37)
[2024-03-15] MEDS: ceFAZolin 2 GM/D5W 50 ML 2 GM/50 ML BAG IVPB ×2 (07:49→11:49)
[2024-03-15] MEDS: fentaNYL CITRATE INJ (*CRX) 100 MCG/2 ML VIAL 25 MCG IV PUSH ×5 (15:00→15:53)
[2024-03-15] MEDS: ONDANSETRON INJ 4 MG/2 ML VIAL IV PUSH (15:28)
--- NOTE | 2024-03-15 15:35 | SUR.PHASEI ---
Simple mask removed at 1519
[2024-03-15] MEDS: oxyCODONE HCL (*CRX) 5 MG TAB IR PO (16:25)
--- NOTE | 2024-03-15 17:41 | SUR.PHASEII ---
1710 WHILE AMBULATING TO RESTROOM PT FELT LIKE SHE WAS GOING TO PASS OUT. ASSISTED BACK TO RECLINER. PT NEVER LOST CONSCIOUSNESS. VOICING CONCERN THAT SHE WANTS TO STAY THE NIGHT. DR GALEANA CALLED & TOLD ABOUT PTS REQUEST. DR GALEANA ADMITTING PT.
--- NOTE | 2024-03-15 18:27 | PC.NURSE ---
This patient, Deidra La, was received from PACU on 03/15/24 at 1756. Patient/family oriented to unit policies and routines
[2024-03-15] MEDS: carisoprodoL (*CRX) 350 MG TABLET PO (20:10)
[2024-03-15] MEDS: KETOROLAC 10 MG TABLET PO (20:10)
[2024-03-15] MEDS: LACTATED RINGERS 1,000 ML 125 ML IV CONT (20:37)
[2024-03-15] MEDS: DOCUSATE SODIUM 100 MG CAPSULE PO (21:00)
[2024-03-15] MEDS: MORPHINE SULFATE (*CRX) 2 MG/ML INJ IV PUSH (22:35)
[2024-03-16] MEDS: carisoprodoL (*CRX) 350 MG TABLET PO ×3 (00:20→13:31)
[2024-03-16] MEDS: KETOROLAC 10 MG TABLET PO ×3 (00:20→13:31)
[2024-03-16 00:34] VITALS: BP 129/53; PULSE 90; RESP 16; RESP 18; TEMP 36.9; O2SAT 97
[2024-03-16 04:58] VITALS: BP 120/59; PULSE 93; RESP 18; TEMP 37.2; O2SAT 96
[2024-03-16] MEDS: ONDANSETRON INJ 4 MG/2 ML VIAL IV PUSH (05:20)
[2024-03-16] MEDS: MORPHINE SULFATE (*CRX) 2 MG/ML INJ IV PUSH (05:20)
--- NOTE | 2024-03-16 06:24 | WPDPN ---
Progress Note: A&P Assessment and Plan (1) Skin laxity: Code(s): L57.4 - Cutis laxa senilis Status: Acute Assessment and Plan: Doing well after bilateral brachioplasty and progressive tension abdominoplasty with suction lipectomy . Will discharge home. Today we had a lengthy discussion about the care. Activity limitations. What to monitor for. What is an emergency and when to dial 911 / proceed to the ER. This was a lengthy open ended conversation making sure they were well informed. Answered all their questions. They voiced a clear understanding. Will discharge home. Call with any questions or concerns in the meantime. (2) Localized adiposity: Code(s): E65 - Localized adiposity Status: Acute Subjective Date/time seen: 03/16/24 06:24 Interval history: She is doing well after bilateral brachioplasty and progressive tension abdominoplasty with suction lipectomy. Ambulating. Pain controlled. No f/c. No n/v. Review of Systems Review of Systems: All systems reviewed & are unremarkable except as noted in HPI and below Exam Narrative: Alert & Oriented NOD Respiratory unlabored Bilateral arms healing well. Soft. No hematoma. No seroma. Normal hand sensation and full ROM. Abdomen is healing well. No signs of infection. No hematoma. No seroma. Good color and capillary refill. No calf tenderness. Negative Timothy's Drain removed Objective Data Vital Signs Vital Signs: Vital Signs - 24 hr 03/15/24 07:27 03/15/24 14:54 03/15/24 15:05 Temperature 36.4 C 36.2 C L Pulse Rate 66 76 66 Respiratory Rate 16 20 18 Blood Pressure 130/77 132/70 139/76 Pulse Oximetry 100 97 100 Oxygen Delivery Room Air Simple Face Mask Simple Face Mask Oxygen Flow Rate 8 8 03/15/24 15:20 03/15/24 15:35 03/15/24 15:50 Temperature 36.4 C Pulse Rate 65 65 63 Respiratory Rate 15 13 15 Blood Pressure 152/76 H 149/73 H 154/80 H Pulse Oximetry 100 96 100 Oxygen Delivery Room Air Room Air Room Air Oxygen Flow Rate 03/15/24 16:00 03/15/24 16:04 03/15/24 16:30 Temperature 36.3 C L Pulse Rate 67 84 82 Respiratory Rate 15 16 16 Blood Pressure 144/74 H 155/76 H 148/89 H Pulse Oximetry 100 Oxygen Delivery Room Air Oxygen Flow Rate 03/15/24 17:30 03/15/24 17:00 03/15/24 20:46 Temperature Pulse Rate 72 70 74 Respiratory Rate 14 16 16 Blood Pressure 151/76 H 143/64 H Pulse Oximetry 98 Oxygen Delivery Room Air Oxygen Flow Rate 03/15/24 20:46 03/16/24 00:34 03/16/24 00:34 Temperature 36.8 C 36.9 C Pulse Rate 74 90 90 Respiratory Rate 16 16 18 Blood Pressure 152/67 H 129/53 L Pulse Oximetry 98 97 97 Oxygen Delivery Room Air Oxygen Flow Rate Intake/Output Intake/Output: Intake & Output 03/13/24 03/14/24 03/15/24 03/16/24 23:59 23:59 23:59 23:59 Intake Total 600 Balance 600 Meds/Results Medications: Active Medications Generic Name Dose Route Start Last Admin Trade Name Freq PRN Reason Stop Dose Admin Carisoprodol 350 mg 03/15/24 18:00 03/16/24 00:20 Carisoprodol (*Crx) 350 Mg Tablet PO 350 mg Q6HR ABDULLAHI Administration Diazepam 5 mg 03/15/24 17:31 Diazepam (*Crx) 5 Mg Tablet PO TID PRN Anxiety Docusate Sodium 100 mg 03/15/24 21:00 03/15/24 21:00 Docusate Sodium 100 Mg Capsule PO 100 mg Q12HR ABDULLAHI Administration Enoxaparin Sodium 40 mg 03/16/24 09:00 Enoxaparin 40 Mg/0.4 Ml Syringe SUB-Q DAILY ABDULLAHI Famotidine 20 mg 03/16/24 09:00 Famotidine 20 Mg Tablet PO DAILY ABDULLAHI Lactated Ringer's 1,000 mls @ 125 mls/hr 03/15/24 17:35 03/15/24 20:37 Lr - Lactated Ringers Iv IV CONT 125 mls/hr .Q8H ABDULLAHI Administration Ketorolac Tromethamine 10 mg 03/15/24 18:00 03/16/24 00:20 Ketorolac 10 Mg Tablet PO 03/17/24 12:01 10 mg Q6HR ABDULLAHI Administration Morphine Sulfate 2 mg 03/15/24 17:31 03/16/24 05:20 Morphine Sulfate (*Crx) 2 Mg/Ml Inj IV PUSH
--- NOTE | 2024-03-16 06:26 | P.DS_ITS ---
DS: Admitting Diagnosis Discharge Date 03/16/2024 Admitting Diagnosis Skin laxity Localized adiposity DS: Discharge Diagnosis Discharge Diagnosis (1) Skin laxity: Code(s): L57.4 - Cutis laxa senilis Status: Acute (2) Localized adiposity: Code(s): E65 - Localized adiposity Status: Acute DS: Summary Hospital Course Hospital Course: She underwent bilateral brachioplasty and progressive tension abdominoplasty with suction lipectomy. Postoperativly has done well. Ambulating. Pain controlled. Tolerating PO. Will discharge home. Time Spent with Patient Time attestation: Total time spent providing and/or coordinating discharge services: Exam Narrative: Alert & Oriented NOD Respiratory unlabored Bilateral arms healing well. Soft. No hematoma. No seroma. Normal hand sensation and full ROM. Abdomen is healing well. No signs of infection. No hematoma. No seroma. Good color and capillary refill. No calf tenderness. Negative Timothy's DS: Data Data Completed and Pending Labs on day of discharge: Labs from last 24 hours 03/15/24 06:26 Cotinine Negative Discharge Plan Discharge Patient Disposition: Home, Self-Care Discharge Instructions: POST OPERATIVE DISCHARGE INSTRUCTIONS COREY JOHNSON M.D. [facility] [address] [place] [address] * No driving for 24 hours after anesthesia and while you are taking pain medication. * Take all prescribed medication as directed * Diet as tolerated. * No lifting or activity that raises blood pressure for 48 hours. * Regular walking / ambulation. * May shower 24 hours after surgery. Once you shower do not take pain medication before showering as the combination of medication and heat may cause you to feel dizzy or pass out. * No pools or tubs for 2 weeks. * Slowly stand up straight as tolerated. * No straining or lifting more than 20 pounds. * If no bowel movement within 24 hours may use laxative. * Call with any questions or concerns. * Dressing Care: Continue abdominal binder / foam / arm wraps 23 hours per day. Adjust tension as needed. If you have any questions or concerns, please call the office . If it is after hours you will be directed to the inclusion internship exchange. Shortness of breath, chest pain, or other medical emergency dial 911 / proceed to the Emergency Room. Anesthesia used a medication called Sugammadex, female patients may need a second line of protection during sexual activity as this medication can limit control for 7 days following administration. OXYCODONE 5MG GIVEN TO YOU AT 4:25PM. DO NOT TAKE ADDITIONAL PRESCRIPTION PAIN MEDICATION UNTIL AFTER 8:25PM TODAY. Stand Alone Forms: General Discharge Instructions Follow-up/Referrals: Corey Johnson MD [Physician] - Other (Tomorrow 03/16/2024) Discharge Medications: Continued famotidine 20 mg tablet 20 mg PO DAILY Qty: 90 2RF
[2024-03-16 08:25] VITALS: BP 122/60; PULSE 96; RESP 18; TEMP 37.1; O2SAT 95
[2024-03-16] MEDS: oxyCODONE/ACETAMINOPHEN (*CRX) 5-325 MG TABLET PO ×3 (10:12→16:54)
[2024-03-16] MEDS: DOCUSATE SODIUM 100 MG CAPSULE PO (10:12)
[2024-03-16] MEDS: ENOXAPARIN 40 MG/0.4 ML SYRINGE SUB-Q (10:14)
[2024-03-16] MEDS: FAMOTIDINE 20 MG TABLET PO (10:14)
== END 2024-03-16 17:45 | disposition home or self-care (01) ==
LOC: ANHSURGERY 16:44 → ANHOB2 17:50
PROVIDERS: PCP Family Medicine; Visit Provider Surgery Plastic and Reconstructive Surgery
PROC: (CPT 15836; principal; 2024-03-15 07:30)
PROC: (CPT 15836; 2024-03-15 07:30)
DX: Z41.1 Encounter for cosmetic surgery (principal); L57.4 Cutis laxa senilis; E65 Localized adiposity; E66.9 Obesity, unspecified; Z68.32 Body mass index [BMI] 32.0-32.9, adult
CPT/HCPCS: 15836; 15830; 15847; 15877; 15878; 80307; 99199; A9270; J0171; J0690; J1100; J1170; J1596; J1650; J2250; J2270; J2405; J2704; J3010; J7120

== ENCOUNTER 2024-07-19 14:03 | Outpatient (CLI) | payer BC, SELFPAY ==
--- NOTE | ~2024-07-19 | MM_ITS ---
EXAMINATION: MM screening radha BI w karen HISTORY: Screening TECHNIQUE: Craniocaudal and mediolateral oblique 3-D tomosynthesis images were obtained and synthetic 2-D images were generated. CAD analysis was submitted and interpreted. COMPARISON: Comparison to multiple prior studies sequentially, with oldest reviewed study dated 04/2018. BREAST PARENCHYMAL COMPOSITION: Not dense: There are scattered areas of fibroglandular density. FINDINGS: There is no evidence of suspicious mass, calcification, or architectural distortion to sugg est malignancy in either breast. There has been no suspicious interval change. IMPRESSION: 1. No mammographic evidence of malignancy. 2. Recommend routine screening mammography in one year. BI-RADS Category 1: Negative Reviewed, dictated and finalized at location B.
== END 2024-07-19 14:04 | disposition home or self-care (01) ==
LOC: ANHIMG 14:04
PROVIDERS: PCP Family Medicine; Visit Provider Obstetrics & Gynecology Gynecology
DX: Z12.31 Encounter for screening mammogram for malignant neoplasm of breast (principal)
CPT/HCPCS: 77063; 77067

== ENCOUNTER 2024-10-04 09:50 | Outpatient (CLI) | payer BC, SELFPAY ==
[2024-10-04 10:21] LABS: Hematocrit 42.4 % (37.0-47.0); Hemoglobin 13.7 g/dL (12.0-15.0); Mean Corpuscular HGB Conc 32.3 g/dl (32-36); Mean Corpuscular Hemoglobin 28.5 pg (26-34); Mean Corpuscular Volume 88.1 fl (80-100); Mean Platelet Volume 8.9 fl (7.4-10.4); Platelet Count Result 337 k/mm3 (150-375); Red Blood Count 4.81 M/mm3 (4.2-5.4); Red Cell Distribution Width 13.4 % (11.5-14.5); White Blood Count 6.8 K/mm3 (4.5-10.0)
[2024-10-04 10:33] LABS: Hemoglobin A1C 5.6 % (<5.7)
[2024-10-04 10:34] LABS: Alanine Aminotransferase 17 U/L (6-35); Alkaline Phosphatase 61 U/L (38-126); Anion Gap 0 mmol/L (4-12); Aspartate Amino Transferase 22 U/L (14-36); Bilirubin,Total 0.6 mg/dL (0.2-1.3); Blood Urea Nitrogen 8 mg/dL (7-17); Carbon Dioxide 29 mmol/L (22-30); Chloride 106 mmol/L (98-107); Cholesterol 203 mg/dL (0-200); Estimated Glomerular Filt Rate > 60; Glucose 95 mg/dL (65-110); HDL Direct 72 mg/dL; Potassium 4.1 mmol/L (3.4-5.0); Sodium 135 mmol/L (137-145); Triglycerides 116 mg/dL (<150)
[2024-10-04 10:45] LABS: LDL Cholesterol Direct 90 mg/dL
[2024-10-04 10:48] LABS: Free T4 Free Thyroxine 0.96 ng/dL (0.78-2.19); Vitamin D 25 Hydroxy 19.5 ng/mL
== END 2024-10-04 09:51 | disposition home or self-care (01) ==
LOC: ANHLAB 09:53
PROVIDERS: PCP Family Medicine; Visit Provider Nurse Practitioner Women's Health
DX: Z01.419 Encounter for gynecological examination (general) (routine) without abnormal findings (principal); E55.9 Vitamin D deficiency, unspecified
CPT/HCPCS: 36415; 80053; 80061; 82306; 83036; 84439; 84443; 85027

== ENCOUNTER 2024-10-06 01:41 | Day surgery (SDC) | payer OTHER, SELFPAY ==
[2024-09-23 13:21] VITALS: BMI 29.0
--- NOTE | 2024-09-23 13:27 | PC.NURSE ---
Report to the Outpatient Waiting Room, entrance under the green pavilion located off [facility], at time _0600_ on date _[id number]_. Planned Procedure Time: _0730_.? Time changes happen often and if your time is changed the preop area will call you the afternoon before. - You and your visitor will be asked to self-screen and do not enter if you have any COVID symptoms. Please call surgeon if you need to reschedule. - A mask is optional within the hospital at this time. Patients may have clear liquids (water, carbonated beverages, clear teas, apple juice) until 3 hours prior to surgery with a maximum of 20 ounces. - No food from midnight until time of surgery and no smoking. This includes no chewing gum, candy or mints. Take only the following medications with a SIP of water on the morning of surgery: ____none DO NOT STOP ANY OF YOUR OTHER PRESCRIPTION MEDICATIONS PRIOR TO SURGERY EXCEPT THE FOLLOWING Medications to discontinue per physician None Date to take last dose Please no make-up, nail turkmen, hairspray, perfume, deodorant, or body powder the day of surgery.? No jewelry (including any body piercings) or valuables the day of surgery, leave them at home.? Please take a shower or bath the night before, or the morning of, surgery with an antibacterial soap.? Wear comfortable, loose fitting clothing.? - Jewelry must be removed prior to entering the operating room.? Rings and piercings that are not removed may be cut off. - The hospital will not accept responsibility for valuables.? - Please leave all valuables, including medications, at home the day of surgery. If you are going home after surgery, a licensed seasonal driver must drive you home.? - NO public transportation without another adult if you receive anesthesia. - We recommend that an adult stay with you for 24 hours following discharge. - We also recommend that you do not drive, make important decision, drink alcoholic beverages, or take any drugs that were not prescribed by your health care provider for at least 24 hours after your discharge time. Follow any additional instructions given to you from your surgeon. Telephone instructions given to __Rebecca__and asked if any additional questions and then verbalized understanding. Patient advised to call surgeon office or pre surgery nurse liaison [phone] if any additional questions.
[2024-10-06] VITALS (11 sets, daily range): BP systolic 112–138; BP diastolic 60–80; PULSE 72–90; RESP 10–16; TEMP 36.2–36.7; O2SAT 100; BMI 29.6
--- NOTE | 2024-10-06 06:54 | P.PNAN_ITS ---
Anes - Initial Pre Proc Eval Procedure: Operation Date: 10/06/24 07:30 Proposed Procedures p Bra Roll Excision, - Corey Johnson MD s Posterior Body Lift - Corey Johnson MD Date/Time: 10/06/24 06:54 Surgeon: Corey Johnson MD Pre Op Diagnosis: Skin Laxity Patient Data Age: 44 Gender: F Height: 1.73 m Weight: 86.8 kg Allergies Allergy/AdvReac Type Severity Reaction Status Date / Time meperidine Allergy Mild RESPIR. Verified 09/23/24 13:20 DISTRESS Penicillins Allergy Unknown Unknown Verified 09/23/24 13:20 adhesive tape AdvReac Mild REDNESS TO Verified 09/23/24 13:20 AREA IF ON FOR AWHILE Home Medications ?Medication ?Instructions ?Recorded ?Confirmed ?Type No Home Medications 09/23/24 09/23/24 History Laboratory Tests 10/06/24 06:28 Cotinine Pending Patient hx anesthesia problems: none Family hx anesthesia problems: none Results Review: All pre-operative results and documents have been reviewed as part of the pre- operative evaluation. [facility] Past Medical History Medical History Bilateral hand pain Encounter for medication management Counseling on health promotion and disease prevention Inflammatory arthritis Anal fissure External hemorrhoids Family hx of colon cancer Colon cancer screening Atypical chest pain Epigastric burning sensation IT band syndrome Medial meniscus tear Lateral epicondylitis Left knee pain Left ankle sprain History of right tennis elbow Right elbow pain Left knee DJD Surgical History Surgical History History of hysteroscopy With D&C 2017 benign H/O LEEP 2017 for mild dysplasia H/O tubal ligation Family History Family History Mother Hypertension Father Hypertension Sibling Asthma, Onset Age: 32 Other Arthritis Social History Social History Smoking status: Never smoker Second hand tobacco smoke exposure: No Alcohol intake: current Substance use type: does not use Lack of Transportation: No Lack of Food: Never True Current Housing: I Have Housing Concerned About Future Housing: No Difficulty Paying Gas/Electric Bills: No Difficulty Paying for Meds: No Currently Unemployed: No Education: Decline to Answer Difficulty w/ Childcare or Family Care: No Living arrangements: with family Additional living arrangements comments: with sp Gender identity (if verbalized by the patient): Female Spiritual care concerns: No Anes - Eval Final PreProcedure Day of Procedure 10/06/24 06:54 Patient weight: normal Heart: regular rate and rhythm Lungs: clear to auscultation Airway: Mallampati scale and special considerations (Perm bridge. ) Neurological: alert and oriented Last oral intake: >/= 8 hours ASA classification: I Emergent: no Anesthetic plan: proceed Anesthesia type and monitoring: general ETT and standard monitoring Results Review: All pre-operative results and documents have been reviewed as part of the pre- operative evaluation. Good health, active, no cp or sob. Pt reports murmur as young adult but subsequently not typically noted on eval. Informed Consent: The patient's anesthetic plan and its attendant risks and benefits were discussed with the patient/family/POA. Questions were solicited and answers provided to the satisfaction of the patient/family/POA.
[2024-10-06 07:03] LABS: Urine Cotinine NEGATIVE
--- NOTE | 2024-10-06 07:20 | WPDHPUPDATE1 ---
History and Physical Update Update Date/Time: 10/06/24 07:20 History and Physical has been reviewed, including an updated exam of the patient. There are NO changes in the patient's condition. Risks, benefits, and alternatives have been discussed and questions answered. Patient agrees to proceed with procedure.
--- NOTE | 2024-10-06 07:20 | W.PM.PROC2 ---
Procedure Note - Detailed Date of Procedure 10/06/24 Pre-op Diagnosis Skin Laxity Post-op Diagnosis Same Procedure Performed 1. Posterior body lift. 2. Bra roll excision Surgeon Corey Johnson MD Anesthesia General Findings Tissue removed: Back 1401.1 grams Anterior 1397.3 grams Lipoaspirate: 700 cc Description of Procedure They are here today for the above procedures. Previously and again today the risks, benefits, alternatives were discussed in extensive detail. I wanted them to be very realistic about the risks involved as well as expectations. We discussed aftercare and what to monitor for. I was very upfront about the risks of wound breakdown leading to loss of skin, open wounds, and need for additional procedures with permanent abdominal deformity. We discussed DVT/PE risks and management. Made sure answered all of their questions to their satisfaction today and consent was obtained. They were marked in the preoperative holding area with their verification. The patient was taken to the operating room. Anesthesia was provided by anesthesiology. Prone Placed prone on the operating room table with care taken to protect from injury. Prepped and draped in a standard sterile fashion. A surgical time-out was taken. Stab incisions were made and tumescent solution was infiltrated. Once adequate time was allowed for hemostasis a 5mm basket and 4mm vidal cannula were utilized to complete suction lipectomy based on S.A.F.E. technique in multiple planes and passes. Suction lipectomy continued to result based on pre-operative planning, intra-operative observation, and rolling pinch test which were in full agreement. Bra roll excision A 10 blade was used to make the upper incision and dissection was continued inferior elevating what we necessary for closure. I excised intervening tissue. This was closed with 3 point suture with 2-0 Vicryl followed 2-0 PDO strattafix, 3-0 stratafix ,running subcuticular 4-0 Monocryl, and tissue glue. Laterally tati were placed for turning. Posterior body lift A 10 blade was used to make the upper incision and dissection was continued inferior elevating what we necessary for closure. I placed patient in slight jackknife position and excised intervening tissue. This was closed with 3 point suture with 2-0 Vicryl followed 2-0 PDO strattafix, 3-0 stratafix ,running subcuticular 4-0 Monocryl, and tissue glue. Laterally tati were placed for turning. Supine Patient was then placed supine with care taken to protect from injury. Completion of bra roll A 10 blade was used to excised the remaining dog ear along IMF . This was closed with 3 point suture with 2-0 Vicryl followed 2-0 PDO strattafix, 3-0 stratafix ,running subcuticular 4-0 Monocryl, and tissue glue. Completion of posterior body lift A 10 blade was used to excised the remaining dog ear. This was closed with 3 point suture with 2-0 Vicryl followed 2-0 PDO strattafix, 3-0 stratafix ,running subcuticular 4-0 Monocryl, and tissue glue. Fluffs and an abdominal binder were placed. The patient was transferred to the bed in a flexed position. Awoken and taken to the PACU without difficulty. All instrument and sponge counts were correct at the end of the case. Estimated Blood Loss 50 Drains No Packing No Pathology None sent Complications No immediate complications Condition Stable Disposition PACU
[2024-10-06] MEDS: LACTATED RINGERS 1,000 ML 30 ML IV CONT ×3 (07:25→12:43)
[2024-10-06] MEDS: ceFAZolin 2 GM/D5W 50 ML 2 GM/50 ML BAG IVPB (07:37)
[2024-10-06 07:40] LABS: BEDSIDEPREGUCG Negative (Negative)
[2024-10-06] MEDS: TRANEXAMIC ACID 1,000MG/ISO100 1,000 MG/100 ML BAG 200 MG IVPB (07:50)
[2024-10-06] MEDS: fentaNYL CITRATE INJ (*CRX) 100 MCG/2 ML VIAL 25 MCG IV PUSH ×8 (12:10→12:42)
[2024-10-06] MEDS: ONDANSETRON INJ 4 MG/2 ML VIAL IV PUSH (12:25)
[2024-10-06] MEDS: oxyCODONE HCL (*CRX) 5 MG TAB IR PO (13:31)
[2024-10-06] MEDS: diphenhydrAMINE HCl INJ 50 MG/ML VIAL 25 MG IV PUSH (13:53)
[2024-10-06] MEDS: SCOPOLAMINE 1 MG PATCH 1 PATCH TRANSDERM (13:55)
--- OUTSIDE RECORDS SUMMARY | 2024-10-12 20:56 | XMS_ITS | Data Portability ---
Author Organization [facility] ?[facility]??, Main Office Address [address] [place] [address] Assessment Encounter Date Assessment Date Assessment LastModified by Organization Details LastModified Time 01/20/2023 01/20/2023 Spider and reticular veins bilateral lower extremities. She underwent injection sclerotherapy today. Not available 01/20/2023 13:42:05 12/15/2023 12/15/2023 Sclerotherapy of BLE telangiectasias. Post procedural instructions provided. Recommended patient f/u in 6 weeks or PRN. Not available 12/15/2023 13:59:17 Plan of Treatment Reminders Order Date Submit Date Provider Last Modified By Organization Details Last Modified Time Details Appointments None record ed. Lab None record ed. Referral None record ed. Procedures None record ed. Surgeries None record ed. Imaging None record ed. Medication Orders None record ed. Patient TargetsNo targets recorded. Patient InstructionsNo instructions recorded. Reason for Referral None Reported. Problems Name Problem SNOMED Code Status Onset Date Resolution Date Notes Provider Name and Address Organization Details Recorded Time Bilateral spider veins of lower limbs [id number] 105 Active 2022 Balaji hadley MD [address], [place], [address], [facility] ?[facility]?? 3 13:56:07 Problem Notes None recorded. Procedures Surgical History Date Name Laterality Status Provider Name and Address Organization Details Recorded Time 4 Blank Procedure Note completed Balaji Briscoe MD [address], [place], [address], [facility] ?.?? 12/15/2023 13:58:40 3 Blank Procedure Note completed Balaji Briscoe MD [address] [facility] [address], [place], [address], [facility] 01/20/2023 13:45:29 Imaging Results None recorded. Procedure Notes None recorded. Medical Equipment None Reported. Allergies Allergen ID Allergen Name Allergen Category Reaction Reaction Severity Criticality Documentation Date Start Date Code Code System Note Provider Name and Address Organization Details Recorded Time 12217 Medicinal product containin g penicilli n and acting as antibacte rial agent (product) medicatio n rash severe Not available 12/04/2022 80272 05 SNOMED Not Available [facility] 3 00:58:04 Medications Name Sig Start Date Stop Date Status Note LastModified by Organization Details LastModified Time prednisone 10 mg tablet active Not Available Not Available Not Available azithromycin 250 mg tablet TAKE 2 TABLETS BY MOUTH FOR 1 DAY THEN TAKE 1 TABLET BY MOUTH DAILY FOR 4 DAYS active Not Available Not Available N ot Available hydrocodone 5 mg-acetamino phen 325 mg tablet active Not Available Not Available Not Available ondansetron HCl 4 mg tablet TAKE 1 TABLET BY MOUTH THREE TIMES DAILY NEEDED active Not Available Not Available No t Available omeprazole 40 mg capsule,lucho yed release TAKE 1 CAPSULE BY MOUTH DAILY active Not Available Not Available Not Available triamcinolon e acetonide 0.1 % topical cream APPLY TOPICALLY TO THE AFFECTED AREA TWICE DAILY active Not Available Not Available No t Available hydrocortiso ne 2.5 % topical cream with perineal applicator APPLY RECTALLY TO THE AFFECTED AREA DAILY NEEDED FOR HEMORRHOIDS active Not Available Not Available Not Available famotidine 20 mg tablet TAKE 1 TABLET BY MOUTH DAILY active Not Available Not Available Not Available omeprazole 20 mg capsule,lucho yed release TAKE 1 CAPSULE BY MOUTH DAILY active Not Available Not Available Not Available ergocalcifer ol (vitamin D2) 1,250 mcg (50,000 unit) capsule TAKE ONE CAPSULE BY MOUTH ONCE A WEEK active Not Available Not Available No t Available fluticasone propionate 50 mcg/actuatio n nasal spray,suspen morales SHAKE LIQUID AND USE 1 SPRAY IN EACH NOSTRIL TWICE DAILY active Not Available Not Available Not Available NuvaRing 0.12 mg-0.015 mg/24 hr vaginal active Not Available Not Available Not Available duloxetine 30 mg capsule,lucho yed release TAKE 1 CAPSULE BY MOUTH DAILY active Not Available Not Available Not Available solifenacin 5 mg tablet active Not Available Not Available Not Available Vitals Date Recorded Body mass index (BMI) Body height Oxygen saturation Oxygen saturation in Arterial blood by Pulse oximetry Heart rate Respiratory rate Body temperature Body weight Systolic blood pressure Diastolic blood pressure Provider Name and Address Organization Details Last Updated DateTime 2 30.4 kg/m2 172.72 cm 98 % 98 % 92 /min 14 /min 97.2 [degF] 25555.4 7 g 120 mm[Hg] 80 mm[Hg] Not Available [facility] 3 00:56:50 Date Recorded Body mass index (BMI) Body height Oxygen saturation Oxygen saturation in Arterial blood by Pulse oximetry Heart rate Respiratory rate Body temperature Body weight Systolic blood pressure Diastolic blood pressure Provider Name and Address Organization Details Last Updated DateTime 2 30.4 kg/m2 172.72 cm 98 % 98 % 92 /min 14 /min 97.2 [degF] 66389.4 7 g 120 mm[Hg] 80 mm[Hg] Not Available [facility] 3 00:56:50 Date Recorded Body height Body mass index (BMI) Body weight Respiratory rate Heart rate Body temperature Oxygen saturation Oxygen saturation in Arterial blood by Pulse oximetry Provider Name and Address Organization Details Last Updated DateTime 3 172.72 cm 30.4 kg/m2 47263.4 7 g 14 /min 74 /min 97 [degF] 98 % 98 % Pushpa Haja [facility] / ?.?? 3 13:10:46 Date Recorded Body height Body mass index (BMI) Body weight Heart rate Body temperature Respiratory rate Oxygen saturation Oxygen saturation in Arterial blood by Pulse oximetry Systolic blood pressure Diastolic blood pressure Provider Name and Address Organization Details Last Updated DateTime 4 172.72 cm 30.4 kg/m2 34845.4 7 g 100 /min 97.7 [degF] 14 /min 98 % 98 % 130 mm[Hg] 80 mm[Hg] Pushpa Smyth [facility] / ?.?? 4 12:15:35 Social History Question Answer Notes LastModified by Organizat ion Details LastModified Time Tobacco Smoking Status Never Smoker Not Available [facility] 12/04/2022 00:56:27 Have You Recently Traveled Abroad? No [id number] Information not available 12/04/2022 Sex: Unknown Functional Status None recorded. Mental Status None recorded. Family History Relationship Description Onset Age of this Age Resolved Age Notes LastModified by Organization Details LastModified Time Mother Venous varices [id number] Not available 12/04/2022 00:56:44 Medical History No medical history recorded. Gynecological HistoryNo gynecological history recorded. Obstetrics History GPAL:G 0 P 0 0 0 0 Past Encounters Encounter ID Performer Location Encounter Start Date Encounter Closed Date Diagnosis/Indication Diagnosis SNOMED-CT Code Diagnosis ICD10 Code Diagnosis Note [id number] [facility] General Surgery [address] [facility], [facility] [address] [place] [address] 02/04/2022 00:00:00 02/04/2022 13:35:[id number] [facility] General Surgery [address] [facility], [address] [address] 01/20/2023 12:08:55 01/20/2023 14:15:33 Bilateral spider veins of lower limbs [id number] I78.[id number] pink [address] [facility] General Surgery [address] [facility], [address] [address] 12/15/2023 11:55:39 05/13/2024 10:50:51 Health Concerns Section Related Observation LastModified by Organization Detai ls LastModified Time None Recorded Concern Status LastModified by Organization Details LastModified Time None Recorded Advance Directives Directive None Recorded Payers Encounter Date Sequence Insurance Name Policy Number Policy Roberts Covered Member ID Roberts Member ID Guarantor Name 12/15/2023 1 [employer]: (PPO) [id number] Tejal La [id number] AB Deidra La Notes Date Note Type Note Provider Name and Address Organization Details Recorded Time 01/20/2023 text/html Patient here to evaluate spider veins on bilateral lower extremities. Has had these for years. Underwent sclero last year with good results. Balaji Briscoe MD [address] [facility], [address], [place], [address], [place] [facility] / ?.?? 01/20/2023 13:56:13 12/15/2023 text/html Patient here to evaluate spider veins on bilateral lower extremities. Has had these for years. Underwent sclero last year with good results. Balaji Briscoe MD [address] [place] [address], [facility] [address], [place], [address], [facility] / ?.?? 12/15/2023 13:59:20 OBGyn Episode No OBEpisode recorded.
--- OUTSIDE RECORDS SUMMARY | 2024-10-12 20:56 | XMS_ITS | Referral Summary ---
Author Organization [facility] Address [address] [facility] [place] [address] Care Team Providers Care Gaming Cage Worker Name Role Phone Shadia Sanderson MD Primary Care Provider [phone] Source Comments [facility]non-owned Affiliates and Associated Physician Practices is amultiple site organization consisting of ambulatory clinics and hospital sitesin [place], [place], [place] and [place]. This disclosure is being madepursuant to the Care Everywhere program and may not contain all information available regarding this patient. Last updated 18.[facility] Allergies Active Allergy Reactions Criticality Noted Date Comments Penicillins Unknown 08/05/2020 Medications * Be aware that medications may not be up to date on this document. Alwaysverify current medications with the patient. Medication Sig Dispensed Refills Start Date End Date Status etonogestrel-ethinyl estradiol (NUVARING) 0.12-0.015 MG/24HR vaginal ring Insert 1 device into the vagina as directed Remove ring after 3 weeks, followed by 1 week-rest, then insert new ring Active Social History Tobacco Use Types Packs/Day Years Used Date Smoking Tobacco: Never Smokeless Tobacco: Never Sex and Gender Information Value Date Recorded Sex Assigned at Not on file Gender Identity Not on file Sexual Orientation Not on file Last Filed Vital Signs Vital Sign Reading Time Taken Comments Blood Pressure 122/82 08/05/2020 3:22 PM LOAN COORDINATOR Pulse 95 08/05/2020 3:22 PM LOAN COORDINATOR Temperature 37.2 ??C (98.9 ??F) 08/05/2020 3:22 PM CS T Respiratory Rate 14 08/05/2020 3:22 PM LOAN COORDINATOR Oxygen Saturation 97% 08/05/2020 3:22 PM LOAN COORDINATOR Inhaled Oxygen Concentration - - Weight 88.5 kg (195 lb) 08/05/2020 3:22 PM LOAN COORDINATOR Height 172.7 cm (5' 8 ) 08/05/2020 3:22 PM LOAN COORDINATOR Body Mass Index 29.65 08/05/2020 3:22 PM LOAN COORDINATOR Plan of Treatment Not on file Care Teams Gaming Cage Worker Relationship Specialty Start Date End Date Shadia Sanderson MD [address] [place] [address] PCP - General Family Medicine 08/05/20
--- OUTSIDE RECORDS SUMMARY | 2024-10-12 20:56 | XMS_ITS | Clinical Summary ---
Author Organization [facility] Address [address] [facility] [place] [address] Care Team Providers Care Privacy Director Name Role Phone Shadia Sanderson MD Primary Care Provider [phone] Source Comments [facility],non-owned Affiliates and Associated Physician Practices is amultiple site organization consisting of ambulatory clinics and hospital sitesin [place], [place], [place] and [place]. This disclosure is being madepursuant to the Care Everywhere program and may not contain all information available regarding this patient. Last updated 18.[facility] Allergies Active Allergy Reactions Criticality Noted Date [...] Comments Blood Pressure 122/82 08/05/2020 3:22 PM TON CONTAINER FILLER Pulse 95 08/05/2020 3:22 PM TON CONTAINER FILLER Temperature 37.2 ??C (98.9 ??F) 08/05/2020 3:22 PM CS T Respiratory Rate 14 08/05/2020 3:22 PM TON CONTAINER FILLER Oxygen Saturation 97% 08/05/2020 3:22 PM TON CONTAINER FILLER Inhaled Oxygen Concentration - - Weight 88.5 kg (195 lb) 08/05/2020 3:22 PM TON CONTAINER FILLER Height 172.7 cm (5' 8 ) 08/05/2020 3:22 PM TON CONTAINER FILLER Body Mass Index 29.65 08/05/2020 3:22 PM TON CONTAINER FILLER Plan of Treatment Health Maintenance Due Date Last Done Comments COLOGUARD (AGES 45-75) - COL ON CA SCREENING 1978 COLON MONITORING 1978 COLONOSCOPY - COLON CA SCREENING 1978 CT COLONOGRAPHY - COLON CA SCREENING 1978 Colorectal Cancer Screening 1978 FIT - COLON CA SCREENING 1978 FLEX SIG - COLON CA SCREENING 1978 LIPID TESTING 1978 MAMMOGRAM 1978 PAP SMEAR 1978 HIV SCREENING 1993 HEPATITIS C SCREENING 06/16/1996 DTAP/TDAP/TD VACCINES (1 - Tdap) 1997 HEPATITIS B VACCINE (1 of 3 - 19+ 3-dose series) 1997 SCREENING FOR DIABETES 08/05/2020 COVID-19 VACCINE (1 - 2023-2 5 season) 2024 INFLUENZA VACCINE (#1) 2024 DEPRESSION SCREENING 10/05/2024 ZOSTER VACCINE (1 of 2) 2028 HIB VACCINE Aged Out No longer eligi ble based on patient's age to complete this topic HPV VACCINE Aged Out No longer eligi ble based on patient's age to complete this topic MENINGOCOCCAL (Group B) VACCINE Aged Out No longer eligible based on patient's age to complete this topic MENINGOCOCCAL VACCINE Aged Out No enrico paramjit eligible based on patient's age to complete this topic PNEUMOCOCCAL VACCINE Aged Out No long er eligible based on patient's age to complete this topic Care Teams Privacy Director Relationship Specialty Start Date End Date Shadia Sanderson MD [address] [place] [address] PCP - General Family Medicine 08/05/20
--- OUTSIDE RECORDS SUMMARY | 2024-10-12 20:56 | XMS_ITS | Encounter Summary ---
Author Organization [facility] Address [address] [place] [address] Care Team Providers Care Automotive Sales Manager Name Role Phone Shadia Sanderson MD Primary Care Provider [phone] Reason for Visit * Reason Onset Date Comments Follow-up 08/07/2020 Encounter Details Date Type Department Care Team (Late st Contact Info) Description 08/07/2020 Telephone [facility] [id number] [place] [address] Paradise Chatman APRN-CNP [address] [place] [address] Follow-up Social History Tobacco Use Types Packs/Day Years Used Date Smoking Tobacco: Never Smokeless Tobacco: Never Sex and Gender Information Value Date Recorded Sex Assigned at Not on file Gender Identity Not on file Sexual Orientation Not on file COVID-19 Exposure Response Date Recorded In the last month, have you been in contact with someone who was confirmed or suspected to have Coronavirus / COVID-19? No / Unsure 08/05/2020 3:14 PM MEMBERSHIP SALES MANAGER documented as of this encounter Miscellaneous Notes * Telephone Encounter - Paradise Chatman APRN-CNP - 08/07/2020 10:36 AM MEMBERSHIP SALES MANAGER Courtesy follow-up phone call made to patient. Patient states she is starting to feel better. Paradise Chatman DNP, HOSPITALIST PROGRAM DIRECTOR-BC ERSHIP SALES MANAGER documented in this encounter Plan of Treatment Not on file documented as of this encounter Visit Diagnoses Not on filedocumented in this encounter Care Teams Automotive Sales Manager Relationship Specialty Start Date End Date Shadia Sanderson MD [address] [place] [address] PCP - General Family Medicine 08/05/20 documented as of this encounter
--- OUTSIDE RECORDS SUMMARY | 2024-10-12 20:56 | XMS_ITS | Patient Health Summary ---
Author Organization [facility] Address [address] [place] [address] Care Team Providers Care Head Start Director Name Role Phone Shadia Sanderson MD Primary Care Provider [phone] Note from [facility],non-owned Affiliates and Associated Physician Practices is amultiple site organization consisting of ambulatory clinics and hospital sitesin [place], [place], [place] and [place]. This disclosure is being madepursuant to the Care Everywhere program and may not contain all information available regarding this patient. Last updated 18.[facility] Allergies * Penicillins(Unknown) Medications * Be aware that medications may not be up to date on this document. Alwaysverify current medications with the patient. * etonogestrel-ethinyl estradiol (NUVARING) 0.12-0.015 MG/24HR vaginal ring Insert 1 device into the vagina as directed Remove ring after 3 weeks, followed by 1 week-rest, then insert new ring Social History Tobacco Use Types Packs/Day Years Used Date Smoking Tobacco: Never Smokeless Tobacco: Never Sex and Gender Information Value Date Recorded Sex Assigned at Not on file Gender Identity Not on file Sexual Orientation Not on file Last Filed Vital Signs Vital Sign Reading Time Taken Comments Blood Pressure 122/82 08/05/2020 3:22 PM VOLUNTEER FIRE FIGHTER Pulse 95 08/05/2020 3:22 PM VOLUNTEER FIRE FIGHTER Temperature 37.2 ??C (98.9 ??F) 08/05/2020 3:22 PM CS T Respiratory Rate 14 08/05/2020 3:22 PM VOLUNTEER FIRE FIGHTER Oxygen Saturation 97% 08/05/2020 3:22 PM VOLUNTEER FIRE FIGHTER Inhaled Oxygen Concentration - - Weight 88.5 kg (195 lb) 08/05/2020 3:22 PM VOLUNTEER FIRE FIGHTER Height 172.7 cm (5' 8 ) 08/05/2020 3:22 PM VOLUNTEER FIRE FIGHTER Body Mass Index 29.65 08/05/2020 3:22 PM VOLUNTEER FIRE FIGHTER Procedures * LS RATIO AMNIOTIC FLUID(Performed 04/08/2013) Results * LS RATIO FLUID (04/08/2013 8:15 AM CDT) L/S Ratio 4.6 04/08/2013 2:49 PM CDT [facility] Color Fluid Pale Yellow 04/08/2013 2:49 PM CDT [facility] Character Fluid Cloudy 3 2:49 PM CDT [facility] Gestational Age 38 2/ 3 2:49 PM CDT [facility] Volume Fluid 8 04/08/2013 2:49 PM CDT [facility] Fluid specimen (specimen) AMNIOTIC FLUID SPECIMEN / Unknown 04/08/2013 8:15 AM CDT 04/08/2013 10:28 AM CDT [facility] - 04/08/2013 2:49 PM CDT L/S Ratio Range: Immature ? <=1.5 Transitional ? 1.6-1.9 Mature ? >=2.0 PLEASE NOTE - L/S Ratio correlates with gestational age only in normal pregnancies. ??Abnormalities of , such as Retroplacental Bleeding and Ruptured Membranes, Hypertensive Renal or Cardiovascular Disease, Class D, E, and F Diabetes, and Maternal Hypertension can accelerate L/S Ratio maturation. ??Conversely, delayed maturation of L/S Ratio can be caused by Erythroblastosis Fetalis, Diabetes Mellitus (Class A, B, or C), and Chronic Nonhypertensive Glomerulonephritis. Meche Ward MD LAB - BODY FLUID OR DERABLES [facility] [address] [place] [address] Care Teams Head Start Director Relationship Specialty Start Date End Date Shadia Sanderson MD [address] [place] [address] PCP - General Family Medicine 08/05/20
--- OUTSIDE RECORDS SUMMARY | 2024-10-12 20:57 | XMS_ITS | Encounter Summary ---
Author Organization [facility] Address [address] [place] [address] Phone Care Team Providers Care Census Clerk Name Role Phone Travis Bustos MD Primary Care Provider [phone] Reason for Referral * (Routine) - Closed Specialty Diagnoses / Procedures Referred By Contac t Referred To Contact Diagnoses Acute pain of right knee Effusion of right knee Osteoarthritis of right patellofemoral joint Procedures Large Joint Injection: R knee Roberto Wilson IV, MD Phone: tel: fax: [facility] (All Locations) Referral ID Status Reason Start Date Expiration Date Visits Re quested Visits Authorized [id number] Closed 02/21/2019 09/01/2020 1 1 Reason for Visit * Reason Comments Pain Encounter Details Date Type Department Care Team (Latest Contact Info) Description 02/21/2019 8:40 AM CDT Office Visit [facility] Orthopaedic Surgery [address] [place] [address] [place] [address] [place] [address] [place] [address] Acute pain of right knee (Primary Dx); Effusion of right knee; Osteoarthritis of right patellofemoral joint Social History Tobacco Use Types Packs/Day Years Used Date Smoking Tobacco: Never Smokeless Tobacco: Never Alcohol Use Standard Drinks/Week Comments Yes 0 (1 standard drink = 0.6 oz pur e alcohol) SOCIAL Comments Unknown Sex and Gender Information Value Date Recorded Sex Assigned at Not on file Legal Sex Female 3:34 PM CDT Gender Identity Not on file Sexual Orientation Not on file documented as of this encounter Ordered Prescriptions Prescription Sig Dispense Quantity Refills Last Filled Start Date End Date meloxicam (MOBIC) 15 mg tablet Take 1 tablet (15 mg total) by mouth daily 30 tablet 02/21/2019 03/23/2019 documented in this encounter Progress Notes * Robreto Wilson IV, MD - 02/21/2019 8:40 AM CDTAssociated Order(s): Large Joint Injection: R knee Post-Procedure Diagnose(s): Acute pain of right knee; Effusion of right knee; Osteoarthritis of right patellofemoral joint Large Joint Injection: R knee Date/Time: 02/21/2019 9:00 AM Performed by: Roberto Wilson IV, MD Authorized by: Roberto Wilson IV, MD Large Joint Injection/Aspiration: Consent Given by: Patient Timeout: prior to procedure the correct patient, procedure, and site was verified Verbal consent obtained: Yes Supporting Documentation: Indications: Pain and joint swelling Procedure Details: Location: Knee Site: R knee Prep: patient was prepped using a clean technique Approach: Superior lateral Medications: 4 mL bupivacaine 0.5 % (5 mg/mL); 80 mg methylPREDNISolone acetate 40 mg/mL; 4 mL lidocaine PF 10 mg/mL (1 %) Aspirate amount (mL): 5 Aspirate: Clear and yellow Patient tolerance: Patient tolerated the procedure well with no immediate complications * Roberto Wilson IV, MD - 02/21/2019 12:00 AM CDT NEW PATIENT VISIT CHIEF COMPLAINT: Right knee pain and swelling for 3 or 4 months. HISTORY OF PRESENT ILLNESS: The patient is a 38-year-old woman who has had 3 or 4 months of right knee pain and swelling. She does not remember a specific inciting injury or event. She says the knee feels like a water balloon. It is a moderate sharp pain. She is on her feet all day and that makes it worse. Elevating it makes it better. She has had a TENS unit. She is referred in from her PMD, Dr. Travis Bustos. No previous knee problems. No previous knee surgery. She has not noticed any locking, catching, or giving way or instability. PAST MEDICAL HISTORY, MEDICATIONS, ALLERGIES, PAST SURGICAL HISTORY, FAMILY HISTORY, SOCIAL HISTORY, AND REVIEW OF SYMPTOMS: Filled out by the patient on the enclosed intake form, and reviewed and signed by me. PHYSICAL EXAMINATION: General: Patient is a pleasant adult female in no acute distress. Medium height, 180 pounds. Alert and oriented x3. Respirations are regular, without distress. Hearing intact to spoken word. Musculoskeletal: Ambulates with a slightly antalgic gait in the right lower extremity. Skin is intact in both lower extremities, with a small effusion in the right knee, no effusion of the left knee.No erythema, ecchymosis, or edema bilaterally. Medial joint line tenderness on the right knee. No other tenderness bilaterally. Zero to 135 degrees of motion bilaterally. Pain with hyperflexion on the right, none on the left. No pain with hyperextension bilaterally. 1A Missael, 1A anterior drawer bilaterally. 1A posterior drawer bilaterally. Symmetric opening to varus and valgus stress at 0 and 30 degrees flexion bilaterally. Negative pivot shift bilaterally. Mild medial pain with flexion compression on the right, none on the left. Gets anteromedial pain with squat and Thessaly on the right, negative on the left. Intact to light touch over the medial and lateral leg, dorsum of the foot, including webspace and plantar aspect of the foot bilaterally. 5/5 tib ant, EHL and gastrocsoleus bilaterally. Palpable dorsalis pedis pulses bilaterally with regular rate and rhythm. REVIEW OF X-RAY/STUDIES: I reviewed plain films 3 views of the right knee including bilateral Merchant and Barber, which show mild patellofemoral compartment OA of both knees. No fracture of the right knee. IMPRESSION/DIAGNOSIS: Deidra has right knee acute pain and effusion, with no injury or event with patellofemoral osteoarthritis. TREATMENT PLAN: I explained to Deidra I would maximize conservative management. I would start with an aspiration and corticosteroid injection, as well as a month of prescription NSAIDs. If she does well with that, follow-up is as needed. If she has sustained or recurrent symptoms within the next 2 to 3 months, then I recommend she give us a call. We will get an MRI and bring her back in. I explained the MRI would be unlikely to change initial management. If she does well for months to years, then we could discuss whether to do a repeat injection and/or NSAIDs down the road. I did discuss the risks and benefits of the injection including but not limited to risk of infection, risk of a flare, risk of changein pigmentation at the injection site. Under sterile conditions, I aspirated a little over 5 mL of benign serous fluid out of the right knee. The knee was injected with a cocktail of 4 mL 1% lidocaine 4 mL of 0.5% bupivacaine, and 80 mg of Depo-Medrol. She tolerated it well. We will see her back asoutlined above. ELECTRONICALLY SIGNED - 02/21/2019 07:26 PM Roberto Wilson MD Professor Sports Medicine, Shoulder and Knee Surgery [facility] RB/ps cc: TRAVIS BUSTOS MD documented in this encounter Plan of Treatment Not on file documented as of this encounter Procedures Procedure Name Priority Date/Time Associated Diagnosis Comments LA ARTHROCENTESIS ASPIR&/INJ MAJOR JT/BURSA W/O US Routine 02/21/2019 8:40 AM CDT Acute pain of right knee Effusion of right knee Osteoarthritis of right patellofemoral joint documented in this encounter Results * LA ARTHROCENTESIS ASPIR&/INJ MAJOR JT/BURSA W/O US (02/21/2019 8:40 AM CDT) Narrative Roberto Wilson IV, MD - 02/21/2019 8:40 AM CDT Roberto Wilson IV, MD ? 02/21/2019 ??8:15 PM Large Joint Injection: R knee Date/Time: 02/21/2019 9:00 AM Performed by: Roberto Wilson IV, MD Authorized by: Roberto Wilson IV, MD Large Joint Injection/Aspiration: ??Consent Given by: ??Patient ??Timeout: prior to procedure the correct patient, procedure, and site was verified ?Verbal consent obtained: Yes ?? Supporting Documentation: ??Indications: ??Pain and joint swelling Procedure Details: ??Location: ??Knee ??Site: ??R knee ??Prep: patient was prepped using a clean technique ?Approach: ??Superior lateral ??Medications: ??4 mL bupivacaine 0.5 % (5 mg/mL); 80 mg methylPREDNISolone acetate 40 mg/mL; 4 mL lidocaine PF 10 mg/mL (1 %) ??Aspirate amount (mL): ??5 ??Aspirate: ??Clear and yellow ??Patient tolerance: ??Patient tolerated the procedure well with no immediate complications us Roberto Wilson IV, MD IN CLINIC/BEDSIDE ORD ERABLES Final Result documented in this encounter Visit Diagnoses Diagnosis Acute pain of right knee- Primary Effusion of right knee Osteoarthritis of right patellofemoral joint documented in this encounter Administered Medications Inactive Administered Medications - up to 3 most recent administrations Medication Order MAR Action Action Date Dose Rate Site bupivacaine (MARCAINE) 0.5 % (5 mg/mL) injection 4 mL 4 mL, other, One-Time Injection, Starting on Thu02/21/19 at 0900, For 1 doseIndications:Acute pain of right knee,Effusion of right knee,Osteoarthritis of right patellofemoral joint Given 02/21/2019 9:00 AM CDT 4 mL lidocaine PF (XYLOCAINE) 10 mg/mL (1 %) preservative free injection 4 mL 4 mL, other, One-Time Injection, Starting on Thu02/21/19 at 0900, For 1 doseIndications:Acute pain of right knee,Effusion of right knee,Osteoarthritis of right patellofemoral joint Given 02/21/2019 9:00 AM CDT 4 mL methylPREDNISolone acetate (DEPO-medrol) injection 80 mg 80 mg, intra-articular, One-Time Injection, Starting on Thu02/21/19 at 0900, For 1 doseIndications:Acute pain of right knee,Effusion of right knee,Osteoarthritis of right patellofemoral joint Given 02/21/2019 9:00 AM CDT 80 mg documented in this encounter Historical Medications * This list may reflect changes made after this encounter. NUVARING 0.12-0.015 mg/24 hr vaginal ring INSERT 1 RING VAGINALLY FOR 3 WEEKS THEN REMOVE FOR 1 WEEK 1 02/15/2019 added in this encounter Care Teams Census Clerk Relationship Specialty Start Date End Date Travis Bustos MD PCP - General Family Medicine 02/14/19 documented as of this encounter
--- OUTSIDE RECORDS SUMMARY | 2024-10-12 20:57 | XMS_ITS | Encounter Summary ---
Author Organization [facility] Address [address] [place] [address] Care Team Providers Care Livestock Broker Name Role Phone Shadia Sanderson MD Primary Care Provider [phone] Reason for Visit * Cardiology (Routine) - Closed Specialty Diagnoses / Procedures Referred By Contac t Referred To Contact Diagnoses Palpitations Procedures Event Monitor, 30 Day Event Shadia Sanderson MD Phone: tel: fax: [facility] Referral ID Status Reason Start Date Expiration Date Visits Re quested Visits Authorized [id number] Closed 03/27/2021 04/26/2022 1 1 Encounter Details Date Type Department Care Team (Late st Contact Info) Description 03/29/2021 10:30 AM CDT Ancillary Procedure [facility] Cardiology [address] [place] [address] Palpitations Social History Tobacco Use Types Packs/Day Years [...] on file documented as of this encounter Plan of Treatment Pending Results Name Type Priority Associated Diagnoses Date /Time Event Monitor, 30 Day Event Cardiac Services Routine Palpitations 03/29/2021 10:37 AM CDT documented as of this encounter Visit Diagnoses Diagnosis Palpitations documented in this encounter Care Teams Livestock Broker Relationship Specialty Start Date End Date Shadia Sanderson MD PCP - General Family Medicine 02/14/19 documented as of this encounter
--- OUTSIDE RECORDS SUMMARY | 2024-10-12 20:57 | XMS_ITS | Encounter Summary ---
Author Organization [facility] Address [address] [place] [address] Care Team Providers Care Is/It Project Manager Name Role Phone Shadia Sanderson MD Primary Care Provider [phone] Encounter Details Date Type Department Care Team (Latest Contact Info) Description 08/05/2020 Travel Social History Tobacco Use Types Packs/Day Years [...] COVID-19? 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
--- OUTSIDE RECORDS SUMMARY | 2024-10-12 20:57 | XMS_ITS | Clinical Summary ---
Author Organization [facility] Address [address] [place] [address] Care Team Providers Care Allopathic Doctor Name Role Phone Shadia Sanderson MD Primary Care Provider [phone] Allergies No known active allergies Medications NUVARING 0.12-0.015 mg/24 hr vaginal ring INSERT 1 RING VAGINALLY FOR 3 WEEKS THEN REMOVE FOR 1 WEEK 1 9 Active Active Problems Problem Noted Date Diagnosed Date Acute pain of right knee 02/21/2019 Effusion of right knee 02/21/2019 Osteoarthritis of right patellofemoral joint Surgical History Surgery Date Site/Laterality Comments TUBAL LIGATION Medical History Medical History Date Comments Arthritis Heart murmur Family History Medical History Relation Name Comments Seizures Brother Arthritis Mother Stroke Mother Relation Name Status Comments Brother Mother Social History Tobacco Use Types Packs/Day Years Used Date Smoking Tobacco: Never Smokeless Tobacco: Never Alcohol Use Standard Drinks/Week Comments Yes 0 (1 standard drink = 0.6 oz pur e alcohol) SOCIAL Personal Safety Answer Date Recorded Getting School Help Needed Not on file 12/19 Comments Unknown Sex and Gender Information Value Date Recorded Sex Assigned at Not on file Legal Sex Female 3:34 PM CDT Gender Identity Not on file Sexual Orientation Not on file Obstetrics History Plan of Treatment Not on file Insurance ANTHEM ACCESS Member Subscriber Plan / Payer (Ef fective 2018-Present) Name:Deidra Tolbert Relation to Subscriber:Spouse Name:SRINATH TOLBERT Date of :1979 (Home) Address: [address] [place] [address] Payer ID:[id number] (NAIC) Type:BC ALLIANCE Address: [id number] BLUE ACCESS CHOICE IN Care Teams Allopathic Doctor Relationship Specialty Start Date End Date Shadia Sanderson MD PCP - General Family Medicine 02/14/19
--- OUTSIDE RECORDS SUMMARY | 2024-10-12 20:57 | XMS_ITS | Encounter Summary ---
Author Organization [facility] Address [address] [place] [address] Care Team Providers Care Caustic Plant Worker Name Role Phone Shadia Sanderson MD Primary Care Provider [phone] Encounter Details Date Type Department Care Team (Late st Contact Info) Description 04/30/2021 Documentation [facility] Cardiology [address] [facility] [address] [place] [address] Serjio Mendez MD [address] [place] [address] Social History Tobacco Use Types Packs/Day Years [...] on file documented as of this encounter Progress Notes * Serjio Mendez MD - 04/30/2021 5:54 PM CDT AMBULATORY LABORER [employer] REPORT Patient Name: Deidra La Date of : 1980 Requesting Physician: Kin Date of interpretation: 04/30/21 Type of monitor : 30 day event monitor Date of the study/Enrollment period: March 29, 2021 to April 27, 2021 Indication: Palpitation Quality of the study: Favorable Interpretation: The basic rhythm is sinus with normal [place] QRS and QT interval. The heart rate variesfrom a minimum of 45 to a maximum of 146 an average rate of 81 was recorded. There were no significant pauses or abnormalities of AV conduction observed. Supraventricular ectopic activity was rare PACs occur at a rate of less than 1 complex per hour. There was no evidence of atrial fibrillation. Ventricular ectopic activity was also rare PVCs occur at a rate of less than 1 complex per hour. There were no ventricular couplets or runs. The patient submitted a diary in which 5 symptomatic episodes were recorded as follows. An episode of lightheadedness and chest pain on 03/29/2021 correlates with sinus rhythm at a heart rate of 65 without any arrhythmias. An episode of chest pain on 03/30/2021 correlates with sinus rhythm at a heart rate of 85 without any arrhythmias. An episode of chest pain and lightheadedness on 04/02/2021 correlated with sinus rhythm at a heart rate of 96 without any arrhythmias. An episode of chest pain on 04/04/2021 correlates with sinus rhythm at a heart rate of 72 without any arrhythmias. An episode of his palpitations and shortness of breath correlates with sinus rhythm heart rate of 95 with 3 premature atrial contractions occurring consecutively. This brief atrial run was preceded terminated bynormal sinus activity. Conclusions: 1. Thirty day event monitor demonstrating sinus rhythm with normal heart rate variability and rare atrial and ventricular ectopic activity 2. Five symptomatic arrhythmic episodes as detailed above most which correlate with no arrhythmias of any kind the last of which correlated with a 3 beat atrial run. Voice recognition software was used to complete this document, therefore, social service assistant variances may occur. Serjio Mendez MD [facility] 04/30/21 documented in this encounter Plan of Treatment Not on file documented as of this encounter Visit Diagnoses Not on filedocumented in this encounter Care Teams Caustic Plant Worker Relationship Specialty Start Date End Date Shadia Sanderson MD PCP - General Family Medicine 02/14/19 documented as of this encounter
--- OUTSIDE RECORDS SUMMARY | 2024-10-12 20:57 | XMS_ITS | Encounter Summary ---
Author Organization [facility] Address [address] [place] [address] Care Team Providers Care Financial Institution Treasurer Name Role Phone Shadia Sanderson MD Primary Care Provider [phone] Reason for Visit * Reason Comments Sinusitis Encounter Details Date Type Department Care Team (Late st Contact Info) Description 08/05/2020 3:20 PM METALLURGICAL LABORATORY ASSISTANT Office Visit [facility] [address] [place] [address] Provider, Mela Exp Nameoki Acute non-recurrent maxillary sinusitis (Primary Dx) Social History Tobacco Use Types Packs/Day Years [...] COVID-19? No / Unsure 08/05/2020 3:14 PM METALLURGICAL LABORATORY ASSISTANT documented as of this encounter Last Filed Vital Signs Vital Sign Reading Time Taken Comments Blood Pressure 122/82 08/05/2020 3:22 PM METALLURGICAL LABORATORY ASSISTANT Pulse 95 08/05/2020 3:22 PM METALLURGICAL LABORATORY ASSISTANT Temperature 37.2 ??C (98.9 ??F) 08/05/2020 3:22 PM CS T Respiratory Rate 14 08/05/2020 3:22 PM METALLURGICAL LABORATORY ASSISTANT Oxygen Saturation 97% 08/05/2020 3:22 PM METALLURGICAL LABORATORY ASSISTANT Inhaled Oxygen Concentration - - Weight 88.5 kg (195 lb) 08/05/2020 3:22 PM METALLURGICAL LABORATORY ASSISTANT Height 172.7 cm (5' 8 ) 08/05/2020 3:22 PM METALLURGICAL LABORATORY ASSISTANT Body Mass Index 29.65 08/05/2020 3:22 PM METALLURGICAL LABORATORY ASSISTANT documented in this encounter Patient Instructions * Patient Instructions* Paradise Chatman, ROTOR CASTING MACHINE SETUP OPERATOR-TEA BLENDER - 08/05/2020 3:35 PM METALLURGICAL LABORATORY ASSISTANT Images from the original note were not included. Drink plenty of fluids to help thin secretions. May take Tylenol or Ibuprofen for fever or pain as directed per package instructions Recommend daily use of OTC intranasal saline irrigation per package instructions May take OTC antihistamines such as Zyrtec, Huyen, or Claritin as directed per package instructions, for runny nose or allergy symptoms Follow up with Shadia Sanderson MD if symptoms worsen or do not completely resolve. GO TO EMERGENCY ROOM OR CALL 911 WITH ANY OF THE FOLLOWING SYMPTOMS: HIGH, PERSISTENT FEVER >102; SWELLING, INFLAMMATION, OR REDNESS AROUND EYES, ABNORMAL EYE MOVEMENTS, VISION CHANGES (DOUBLE VISION OR IMPAIRED VISION); SEVERE HEADACHE; ALTERED MENTAL STATUS. THESE ARE SIGNS OF A RARE, BUT SERIOUS COMPLICATION AND REQUIRES IMMEDIATE EMERGENCY ATTENTION. Patient Education Sinusitis HOUSEKEEPING ASSOCIATE: Sinusitis is inflammation or infection of your sinuses. It is most often caused by a virus. Acute sinusitis may last up to 12 weeks. Chronic sinusitis lasts longer than 12 weeks. Recurrent sinusitis means you have 4 or more times in 1 year. Common symptoms include the following: ?? Fever ?? Pain, pressure, redness, or swelling around the forehead, cheeks, or eyes ?? Thick yellow or green discharge from your nose ?? Tenderness when you touch your face over your sinuses ?? Dry cough that happens mostly at night or when you lie down ?? Headache and face pain that is worse when you lean forward ?? Tooth pain, or pain when you chew Seek care immediately if: ?? Your eye and eyelid are red, swollen, and painful. ?? You cannot open your eye. ?? You have vision changes, such as double vision. ?? Your eyeball bulges out or you cannot move your eye. ?? You are more sleepy than normal, or you notice changes in your ability to think, move, or talk. ?? You have a stiff neck, a fever, or a bad headache. ?? You have swelling of your forehead or scalp. Contact your healthcare provider if: ?? Your symptoms do not improve after 3 days. ?? Your symptoms do not go away after 10 days. ?? You have nausea and are vomiting. ?? Your nose is bleeding. ?? You have questions or concerns about your condition or care. Treatment for sinusitis: Your symptoms may go away on their own. Your healthcare provider may recommend watchful waiting for up to 10 days before starting antibiotics. You may need any of the following: ?? Acetaminophen decreases pain and fever. It is available without a doctor's order. Ask how much to take and how often to take it. Follow directions. Read the labels of all other medicines you are using to see if they also contain acetaminophen, or ask your doctor or pharmacist. Acetaminophen can cause liver damage if not taken correctly. Do not use more than 4 grams (4,000 milligrams) total of acetaminophen in one day. ?? NSAIDs , such as ibuprofen, help decrease swelling, pain, and fever. This medicine is available with or without a doctor's order. NSAIDs can cause stomach bleeding or kidney problems in certain people. If you take blood thinner medicine, always ask your healthcare provider if NSAIDs are safe foryou. Always read the medicine label and follow directions. ?? Nasal steroid sprays may help decrease inflammation in your nose and sinuses. ?? Decongestants help reduce swelling and drain mucus in the nose and sinuses. They may help you breathe easier. ?? Antihistamines help dry mucus in the nose and relieve sneezing. ?? Antibiotics help treat or prevent a bacterial infection. ?? Take your medicine as directed. Contact your healthcare provider if you think your medicine is not helping or if you have side effects. Tell him or her if you are allergic to any medicine. Keep a list of the medicines, vitamins, and herbs you take. Include the amounts, and when and why you take them. Bring the list or the pill bottles to follow-up visits. Carry your medicine list with you in case of an emergency. Self-care: ?? Rinse your sinuses. Use a sinus rinse device to rinse your nasal passages with a saline (salt water) solution or distilled water. Do not use tap water. This will help thin the mucus in your nose and rinse away pollen and dirt. It will also help reduce swelling so you can breathe normally. Ask your healthcare provider how often to do this. ?? Breathe in steam. Heat a bowl of water until you see steam. Lean over the bowl and make a tent over your head with a large towel. Breathe deeply for about 20 minutes. Be careful not to get too close to the steam or burn yourself. Do this 3 times a day. You can also breathe deeply when you take ahot shower. ?? Sleep with your head elevated. Place an extra pillow under your head before you go to sleep to help your sinuses drain. ?? Drink liquids as directed. Ask your healthcare provider how much liquid to drink each day and which liquids are best for you. Liquids will thin the mucus in your nose and help it drain. Avoid drinks that contain alcohol or caffeine. ?? Do not smoke, and avoid secondhand smoke. Nicotine and other chemicals in cigarettes and cigars can make your symptoms worse. Ask your healthcare provider for information if you currently smoke and need help to quit. E-cigarettes or smokeless tobacco still contain nicotine. Talk to your healthcare provider before you use these products. Prevent the spread of germs that cause sinusitis: Wash your hands often with soap and water. Wash your hands after you use the bathroom, change a child's diaper, or sneeze. Wash your hands before youprepare or eat food. Follow up with your healthcare provider as directed: You may be referred to an ear, nose, and throat specialist. Write down your questions so you remember to ask them during your visits. ?? Copyright [employer] 2019 Information is for End User's use only and may not be sold, redistributed or otherwise used for commercial purposes. All illustrations and images included in CareNotes?? are the copyrighted property of [employer]. or [employer] The above information is an radiology aide only. It is not intended as medical advice for individual conditions or treatments. Talk to your doctor, nurse or pharmacist before following any medical regimen to see if it is safe and effective for you. LLURGICAL LABORATORY ASSISTANT documented in this encounter Progress Notes * Paradise Chatman APRN-CNP - 08/05/2020 3:22 PM CST Images from the original note were not included. Subjective: Deidra La is a 40 year old female who presents to clinic today for Chief Complaint Patient presents with ??? Sinusitis . Deidra La is here for evaluation of sore throat, congestion, post nasal drip, sinus pressure, cough described as productive r/t nasal drainage, headache described as sinus pain and pressure. PCP is Shadia Sanderson MD. She states the Onset was: 7 days ago, with symptoms worsening 3 days ago; course is gradually worsening. She is drinking plenty of fluids. The sinus pain is described as achingand pressure, and is 5/10 in intensity. OTC- Cough and cold medication with temporary relief of symptoms. Sick Contacts: No known sick contacts. Past Medical History: Diagnosis Date ??? Patient denies medical problems No family history on file. Current Outpatient Medications Medication Sig Dispense Refill ??? doxycycline hyclate (VIBRAMYCIN) 100 MG capsule Take 1 capsule by mouth 2 times daily for 7 days 14 capsule 0 ??? etonogestrel-ethinyl estradiol (NUVARING) 0.12-0.015 MG/24HR vaginal ring Insert 1 device into the vagina as directed Remove ring after 3 weeks, followed by 1 week-rest, then insert new ring No current facility-administered medications for this visit. Allergies Allergen Reactions ??? Penicillins Unknown Social History Socioeconomic History ??? Marital status: Unknown Spouse name: Not on file ??? Number of children: Not on file ??? Years of education: Not on file ??? Highest education level: Not on file Occupational History ??? Not on file Social Needs ??? Financial resource strain: Not on file ??? Food insecurity Worry: Not on file Inability: Not on file ??? Transportation needs Medical: Not on file Non-medical: Not on file Tobacco Use ??? Smoking status: Never Smoker ??? Smokeless tobacco: Never Used Substance and Sexual Activity ??? Alcohol use: Not on file ??? Drug use: Not on file ??? Sexual activity: Not on file Lifestyle ??? Physical activity Days per week: Not on file Minutes per session: Not on file ??? Stress: Not on file Relationships ??? Social connections Talks on phone: Not on file Gets together: Not on file Attends yazidism service: Not on file Active member of club or organization: Not on file Attends meetings of clubs or organizations: Not on file Relationship status: Not on file ??? Intimate partner violence Fear of current or ex partner: Not on file Emotionally abused: Not on file Physically abused: Not on file Forced sexual activity: Not on file Other Topics Concern ??? Not on file Social History Narrative ??? Not on file Review of Systems Constitutional: Negative for fatigue, fevers, chills, malaise. Eyes: Negative Ears, nose, mouth, and throat: Positive for throat irritation, post nasal drainage, bilateral ear pressure, sinus pain and pressure. Negative for changes in taste and smell. Respiratory: Positive for acute cough r/t nasal drainage Cardiovascular: Negative Hematologic/lymphatic: Negative Neurological: Negative Objective: BP 122/82 Pulse 95 Temp 98.9 ??F (37.2 ??C) Resp 14 Ht 1.727 m (5' 8 ) Wt 88.5 kg (195 lb) SpO2 97%BMI 29.65 kg/m2 General appearance: alert, cooperative, no distress, oriented to person, place, and time, well appearing Head: normocephalic, without trauma Eyes: sclera and conjunctiva clear Ears: Bilateral TM with serous fluid. No erythema or bulging. Nose: nares open; no septal deviation is noted, mucosa erythematous and swollen, maxillary tenderness on right, frontal tenderness on right Throat: no mucous membrane abnormalities; post nasal drainage present Neck: supple Nodes: mild, benign-appearing anterior cervical adenopathy Lungs: breath sounds normal and symmetric; no rales or wheezes Heart: regular rhythm, normal S1 and S2, without murmurs, gallops or rubs Neurologic: mental status normal alert Assessment: Encounter Diagnosis Name Primary? Acute non-recurrent maxillary sinusitis Yes Plan: Drink plenty of fluids to help thin secretions. May take Tylenol or Ibuprofen for fever or pain as directed per package instructions Recommend daily use of OTC intranasal saline irrigation per package instructions May take OTC antihistamines such as Zyrtec, Huyen, or Claritin as directed per package instructions, for runny nose or allergy symptoms Reviewed education materials and instructions with patient and answered all questions. Deidra La verbalized understanding and agrees with plan. Follow up with Shadia Sanderson MD if symptoms worsen or do not completely resolve. GO TO EMERGENCY ROOM OR CALL 911 WITH ANY OF THE FOLLOWING SYMPTOMS: HIGH, PERSISTENT FEVER >102; SWELLING, INFLAMMATION, OR REDNESS AROUND EYES, ABNORMAL EYE MOVEMENTS, VISION CHANGES (DOUBLE VISION OR IMPAIRED VISION); SEVERE HEADACHE; ALTERED MENTAL STATUS. THESE ARE SIGNS OF A RARE, BUT SERIOUS COMPLICATION AND REQUIRES IMMEDIATE EMERGENCY ATTENTION. Orders Placed This Encounter ??? doxycycline hyclate (VIBRAMYCIN) 100 MG capsule Sig: Take 1 capsule by mouth 2 times daily for 7 days Dispense: 14 capsule Refill: 0 Paradise Chatman DNP, HOLLOW HANDLE BENCH WORKER-BC 08/05/2020 3:48 PM LLURGICAL LABORATORY ASSISTANT documented in this encounter Plan of Treatment Not on file documented as of this encounter Visit Diagnoses Diagnosis Acute non-recurrent maxillary sinusitis- Primary documented in this encounter Care Teams Financial Institution Treasurer Relationship Specialty Start Date End Date Shadia Sanderson MD [address] [place] [address] PCP - General Family Medicine 08/05/20 documented as of this encounter
--- OUTSIDE RECORDS SUMMARY | 2024-10-12 20:57 | XMS_ITS | Encounter Summary ---
Author Organization [facility] Address [address] [place] [address] Phone Care Team Providers Care Chemist Physical Name Role Phone Shadia Sanderson MD Primary Care Provider [phone] Reason for Referral * Diagnostic Imaging (Routine) - Closed Specialty Diagnoses / Procedures Referred By Contac t Referred To Contact Diagnoses Right knee pain, unspecified chronicity Procedures XR Knee Right 3 Views Roberto Wilson IV, MD Phone: tel: fax: [facility] Referral ID Status Reason Start Date Expiration Date Visits Re quested Visits Authorized [id number] Closed 02/15/2019 08/26/2020 1 1 Encounter Details Date Type Department Care Team (Late st Contact Info) Description 02/15/2019 Orders Only [facility] Orthopaedic Surgery [address] [place] [address] [place] [address] [address] [place] [address] Right knee pain, unspecified chronicity (Primary Dx) Social History Tobacco Use Types Packs/Day Years Used Date Smoking Tobacco: Never Assessed Comments Unknown Sex and Gender Information Value Date Recorded Sex Assigned at Not on file Legal Sex Female 3:34 PM CDT Gender Identity Not on file Sexual Orientation Not on file documented as of this encounter Plan of Treatment Not on file documented as of this encounter Results * XR Knee Right 3 Views (02/21/2019 9:23 AM CDT) Anatomical Region Laterality Modality Lower Extremities, Knee Right Computed Radiography 02/21/2019 9:29 AM CDT Impressions 02/21/2019 9:29 AM CDT 1. ??Mild patellofemoral compartment right knee osteoarthritis. Electronically signed by: Arias Correa M.D. Narrative 02/21/2019 9:29 AM CDT EXAMINATION: Right knee 3 views HISTORY: Right knee pain FINDINGS: Three-view examination of the right knee including Barber and merchant views are submitted for interpretation without comparison available. ??There is mild patellofemoral compartment right knee osteoarthritis. ??There is no fracture or dislocation. ??There is no large knee effusion. ??There is mild patellofemoral compartment left knee osteoarthritis. Procedure Note Arias Correa MD - 02/21/2019 EXAMINATION: Right knee 3 views HISTORY: Right knee pain FINDINGS: Three-view examination of the right knee including Barber and merchant views are submitted for interpretation without comparison available. There is mild patellofemoral compartment right knee osteoarthritis. There is no fracture or dislocation. There is no large knee effusion. There is mild patellofemoral compartment left knee osteoarthritis. IMPRESSION: 1. Mild patellofemoral compartment right knee osteoarthritis. Electronically signed by: Arias Correa M.D. Roberto Wilson IV, MD IMG XR PROCEDURES Fin al Result documented in this encounter Visit Diagnoses Diagnosis Right knee pain, unspecified chronicity- Primary Right knee pain, unspecified chronicity documented in this encounter Care Teams Chemist Physical Relationship Specialty Start Date End Date Shadia Sanderson MD PCP - General Family Medicine 02/14/19 documented as of this encounter
--- OUTSIDE RECORDS SUMMARY | 2024-10-12 20:57 | XMS_ITS | Encounter Summary ---
Author Organization [facility] Address [address] [address] Care Team Providers Care Race Relations Professor Name Role Phone Shadia Sanderson MD Primary Care Provider [phone] Encounter Details Date Type Department Care Team (Late st Contact Info) Description 05/08/2021 Telephone [facility] Cardiology [address] [facility] [address], [place] [address] Herminio Mcdaniel MD [address] [place] [address] [address] [place], [place] [id number] Social History Tobacco Use Types Packs/Day Years [...] on file documented as of this encounter Miscellaneous Notes * Telephone Encounter - Denae Nevarez RN - 05/08/2021 1:59 PM CDT Lm on vm that pt should call ordering md, Dr Sanderson, for results. Results refaxed as well to PCP. * Telephone Encounter - Phuong Urrutia - 05/08/2021 12:47 PM CDT Patient called wanting to know the results of a monitor that was done in March. documented in this encounter Plan of Treatment Not on file documented as of this encounter Visit Diagnoses Not on filedocumented in this encounter Care Teams Race Relations Professor Relationship Specialty Start Date End Date Shadia Sanderson MD PCP - General Family Medicine 02/14/19 documented as of this encounter
--- OUTSIDE RECORDS SUMMARY | 2024-10-12 20:57 | XMS_ITS | Encounter Summary ---
Author Organization [facility] Address [address] [place] [address] Care Team Providers Care Crystal Grinder Name Role Phone Shadia Sanderson MD Primary Care Provider [phone] Reason for Referral * Diagnostic Imaging (Routine) - Closed Specialty Diagnoses / Procedures Referred By Contac t Referred To Contact Diagnoses Right knee pain, unspecified chronicity Procedures XR Knee Right 3 Views Roberto Wilson IV, MD Phone: tel: fax: [facility] Referral ID Status Reason Start Date Expiration Date Visits Re quested Visits Authorized [id number] Closed 02/15/2019 08/26/2020 1 1 Reason for Visit * Diagnostic Imaging (Routine) - Closed Specialty Diagnoses / Procedures Referred By Contac t Referred To Contact Diagnoses Right knee pain, unspecified chronicity Procedures XR Knee Right 3 Views Roberto Wilson IV, MD Phone: tel: fax: [facility] Referral ID Status Reason Start Date Expiration Date Visits Re quested Visits Authorized [id number] Closed 02/15/2019 08/26/2020 1 1 Encounter Details Date Type Department Care Team (Latest Contact Info) Description 02/21/2019 9:07 AM CDT - 02/21/2019 11:59 PM CDT Hospital Encounter [facility] [address] [place] [address] [place] [address] [place] [address] Right knee pain, unspecified chronicity Discharge Disposition: Discharge to home or self care Social History Tobacco Use Types Packs/Day Years [...] on file documented as of this encounter Medications at Time of Discharge NUVARING 0.12-0.015 mg/24 hr vaginal ring INSERT 1 RING VAGINALLY FOR 3 WEEKS THEN REMOVE FOR 1 WEEK 1 02/15/2019 meloxicam (MOBIC) 15 mg tablet Take 1 tablet (15 mg total) by mouth daily 30 tablet 02/21/2019 9 documented as of this encounter Discharge Disposition Disposition Code Departure Means Destination Discharge to home or self care documented in this encounter Plan of Treatment Not on file documented as of this encounter Procedures Procedure Name Priority Date/Time Associated Diagnosis Comments XR KNEE RIGHT 3 VIEWS Schedule Routine, Read Routine (OP Routine) 02/21/2019 9:23 AM CDT Right knee pain, unspecified chronicity documented in this encounter Results * XR Knee Right [...] Visit Diagnoses Diagnosis Right knee pain, unspecified chronicity documented in this encounter Care Teams Crystal Grinder Relationship Specialty Start Date End Date hSadia Sanderson MD PCP - General Family Medicine 02/14/19 documented as of this encounter
--- OUTSIDE RECORDS SUMMARY | 2024-10-12 20:57 | XMS_ITS | Referral Summary ---
Author Organization [facility] Address [address] [place] [address] Care Team Providers Care Director Of Personnel Name Role Phone Shadia Sanderson MD Primary Care Provider [phone] Allergies No known active allergies Medications NUVARING 0.12-0.015 mg/24 hr vaginal ring INSERT 1 RING VAGINALLY FOR 3 WEEKS THEN REMOVE FOR 1 WEEK 1 9 Active Active Problems Problem Noted Date Diagnosed Date Acute pain of right knee 02/21/2019 Effusion of right knee 02/21/2019 Osteoarthritis of right patellofemoral joint Social History [...] on file Sexual Orientation Not on file Plan of Treatment Not on file Insurance [employer] ACCESS Member Subscriber Plan / Payer (Ef fective 2018-Present) Name:Deidra Tolbert Relation to Subscriber:Spouse Name:SRINATH TOLBERT Date of :1979 (Home) Address: [address] [place] [address] Payer ID:[id number] (NAIC) Type:[employer] ALLIANCE Address: [address] [facility] Care Teams Director Of Personnel Relationship Specialty Start Date End Date Shadia Sanderson MD PCP - General Family Medicine 02/14/19
--- OUTSIDE RECORDS SUMMARY | 2024-10-12 20:57 | XMS_ITS | Continuity of Care Document ---
Author Organization [facility] Address [address] [place] [address] [address] [place] [address] Phone Care Team Providers Care Can Solderer Name Role Phone Brown OD, Gurjit Unavailable Unavailable Advance Directives Directive Yes / No Effective Date File Name No Information Encounters Encounter Description Practice Location Reason(s) For Visit Diagnoses Date Provider Providers Copied on Encounter [facility], [address] [place], [place], [id number], [place] tel:[phone] [facility] [place] No Information 9-200 5 Brown OD Gurjit. [address] [facility] [address] , [address], [place], [address], [place]. tel:[phone] Family History Family Member Type Diagnosis Age At Onset No Information Payers Payer name Insurance type Covered constitution party ID Authoriza tion(s) No Information Social History Type Description Quantity Date Captured Comments Sex Female Smoking Status No Information Chief Complaint And Reason For Visit No Information Reason For Referral Reason For Referral No Information History Of Present Illness Encounter Date Complaint History Of Prese nt Illness No Information Functional Status Date Functional Assessmen t No Information Instructions Date Instruction Additional Infor mation No Information Assessments Type Assessment Date No Information Patient Care Teams Name Effective Dates (start - stop) Status Members No Information
== END 2024-10-06 15:10 | disposition home or self-care (01) ==
PROVIDERS: PCP Family Medicine; Visit Provider Surgery Plastic and Reconstructive Surgery
PROC: 0HBV0ZZ Excision of Bilateral Breast, Open Approach (ICD-10-PCS; CPT 19318; principal; 2024-10-06 07:30)
PROC: (CPT 15830; 2024-10-06 07:30)
DX: Z41.1 Encounter for cosmetic surgery (principal); L57.4 Cutis laxa senilis; N64.81 Ptosis of breast; E65 Localized adiposity; K21.9 Gastro-esophageal reflux disease without esophagitis; R01.1 Cardiac murmur, unspecified; M06.4 Inflammatory polyarthropathy; M76.30 Iliotibial band syndrome, unspecified leg; M17.12 Unilateral primary osteoarthritis, left knee; Z98.890 Other specified postprocedural states; Z98.51 Tubal ligation status; Z87.19 Personal history of other diseases of the digestive system; Z80.0 Family history of malignant neoplasm of digestive organs
CPT/HCPCS: 15830; 15847; 15877; 15839; 80307; A9270; J0171; J0690; J1100; J1200; J2003; J2004; J2250; J2405; J2704; J3010; J7120

== ENCOUNTER 2025-01-11 12:56 | Outpatient (CLI) | payer BC, SELFPAY ==
--- NOTE | ~2025-01-11 | US_ITS ---
Posterior left calf ULTRASOUND (Doppler ultrasound interrogation techniques used as needed for this e xam.) Ordering provider: Jaquelin Vaughn PA-C History: . localized swelling, mass and lump, left lower limb . Comparison: None. FINDINGS/impression: Complex echogenicity 5.5 x 1.1 x 2.3 cm areas seen which is probably a lipoma. Mass cannot be exclude d Follow-up and further evaluation advised. Reviewed, dictated and finalized at location A.
== END 2025-01-11 12:57 | disposition home or self-care (01) ==
LOC: MICIMG 12:56
PROVIDERS: PCP Family Medicine; Visit Provider Student in an Organized Health Care Education/Training Program
DX: R22.42 Localized swelling, mass and lump, left lower limb (principal)
CPT/HCPCS: 76882

== ENCOUNTER 2025-01-31 13:02 | Outpatient (CLI) | payer BC, SELFPAY ==
--- NOTE | ~2025-01-31 | MR_ITS ---
EXAMINATION: MR lower leg LT wo/w con DATE: 01/31/2025 13:52 INDICATION: Localized swelling at the left lower limb TECHNIQUE: Magnetic resonance imaging (MRI) of the left lower limb was performed without and with 17 mL Multihance intravenous contrast. A marker has been placed over the palpable mass. Sequences includ ed axial, sagittal and coronal T1-weighted FSE and fluid sensitive FSE STIR, axial T1-weighted FS FSE and postcontrast axial, sagittal and coronal T1-weighted FS FSE. The contralateral right lower leg i s included on the coronal images. COMPARISON: None. FINDINGS: There is a 3.8 x 2.4 x 1.6 cm T1 hyperintense, fat saturating intramuscular lipoma within the superfi cial aspect of the lateral side of the soleus muscle. No abnormal soft tissue or enhancing component. The musculature of the left calf is otherwise unremarkable and otherwise symmetric with the contrala teral right calf. There is normal bone marrow signal throughout. No knee or ankle joint effusions or other abnormal fluid collections. The vasculature of the left calf is unremarkable. IMPRESSION: 1. 3.8 x 2.4 x 1.6 cm intramuscular lipoma within the left soleus muscle. Reviewed, dictated and finalized at location B.
== END 2025-01-31 13:03 | disposition home or self-care (01) ==
LOC: MICIMG 13:03
PROVIDERS: PCP Family Medicine; Visit Provider Student in an Organized Health Care Education/Training Program
DX: D17.9 Benign lipomatous neoplasm, unspecified (principal)
CPT/HCPCS: 73720; A9577

== ENCOUNTER 2025-03-29 10:49 | Outpatient (CLI) | payer BC, SELFPAY ==
[2025-03-29 11:56] LABS: Alanine Aminotransferase 17 U/L (6-35); Albumin Level 4.3 g/dL (3.5-5.1); Alkaline Phosphatase 51 U/L (38-126); Anion Gap 8 mmol/L (4-12); Aspartate Amino Transferase 27 U/L (14-36); Bilirubin,Total 0.6 mg/dL (0.2-1.3); Blood Urea Nitrogen 7 mg/dL (7-17); Calcium 9.1 mg/dL (8.4-10.2); Carbon Dioxide 26 mmol/L (22-30); Chloride 103 mmol/L (98-107); Cholesterol 202 mg/dL (0-200); Estimated Glomerular Filt Rate > 60; Glucose 88 mg/dL (65-110); HDL Direct 64 mg/dL; Potassium 3.9 mmol/L (3.4-5.0); Sodium 137 mmol/L (137-145); Total Protein 7.4 g/dL (6.3-8.2); Triglycerides 96 mg/dL (<150)
[2025-03-29 12:07] LABS: LDL Cholesterol Direct 89 mg/dL
[2025-03-29 12:13] LABS: Free T4 Free Thyroxine 0.88 ng/dL (0.78-2.19); Vitamin D 25 Hydroxy 53.4 ng/mL
[2025-03-29 12:15] LABS: Hemoglobin A1C 5.5 % (<5.7)
== END 2025-03-29 10:50 | disposition home or self-care (01) ==
PROVIDERS: PCP Family Medicine; Visit Provider Student in an Organized Health Care Education/Training Program
DX: Z13.1 Encounter for screening for diabetes mellitus (principal); E55.9 Vitamin D deficiency, unspecified; R53.83 Other fatigue; E78.5 Hyperlipidemia, unspecified
CPT/HCPCS: 36415; 80053; 80061; 82306; 83036; 84439; 84443

== ENCOUNTER 2025-09-18 11:04 | Outpatient (CLI) | payer OTHER, SELFPAY ==
--- NOTE | 2025-09-18 11:00 | ECG_ITS ---
Test Date: 2025-09-18 11:18:53 Measurements Intervals [place] Rate: 67 P: 40 FL: 144 QRS: -16 QRSD: 107 T: 20 QT: 389 QTc: 412 Interpretive Statements SINUS RHYTHM LOW QRS VOLTAGE IN PRECORDIAL LEADS INCOMPLETE RIGHT BUNDLE BRANCH BLOCK PATTERN CONSISTENT WITH PULMONARY DISEASE CONSIDER INFERIOR INFARCT, AGE INDETERMINATE BASELINE ARTIFACT- I, II, III, AVR, AVL, AVF, V1-V6 ABNORMAL ECG Compared to ECG 03/04/2024 14:51:11 No significant changes Electronically Signed On 09-18-2025 11:42:41 OCCUPATIONAL MEDICINE SPECIALIST by Rory Jefferson D.O.
[2025-09-18 11:26] LABS: Hematocrit 39.1 % (37.0-47.0); Hemoglobin 13.0 g/dL (12.0-15.0)
== END 2025-09-18 11:05 | disposition home or self-care (01) ==
LOC: ANHSURGERY 11:08
PROVIDERS: Anesthesiology; PCP Student in an Organized Health Care Education/Training Program; Visit Provider Surgery Plastic and Reconstructive Surgery
DX: Z01.818 Encounter for other preprocedural examination (principal); L57.4 Cutis laxa senilis; I45.10 Unspecified right bundle-branch block; R94.31 Abnormal electrocardiogram [ECG] [EKG]
CPT/HCPCS: 36415; 85014; 85018; 93005

== ENCOUNTER 2025-09-21 00:34 | Day surgery (SDC) | payer OTHER, SELFPAY ==
--- NOTE | 2025-09-15 16:08 | PC.NURSE ---
[facility] has started construction of its new state of the art ER which will open Spring 2026. With this, we anticipate parking may be a challenge for some our surgical patients and families. Parking spaces are limited but are available for all Surgical, obstetrics, and ER patients sharing this lot. If you arrive and find you are having a hard time finding a parking space, please note that we understand the challenges, please drive around the hospital and park near Hospital Entrance 1. When you enter this entrance, you can ask a volunteer to direct or take you back to the surgical waiting area to check in. We appreciate everyone?s understanding of these expected challenges while we build for your future. Report to the Outpatient Waiting Room, entrance under the green pavilion located off [address], at time 0600 on date 09/21/25. Planned Procedure Time: 0730.? Time changes happen often and if your time is changed the preop area will call you the afternoon before. - You and your visitor will be asked to self-screen and do not enter if you have any COVID symptoms. Please call surgeon if you need to reschedule. - A mask is optional within the hospital at this time. Patients may have clear liquids (water, carbonated beverages, clear teas, apple juice) until 3 hours prior to surgery with a maximum of 20 ounces. 0430 - No food from midnight until time of surgery and no smoking, or chewing tobacco (or any form of nicotine). No chewing gum, candy or mints. - Infants may have breast milk until 4 hours before surgery, infant formula 6 hours prior to surgery. - Children will be allowed to drink immediately following surgery.? If applicable, please bring a bottle or sippy cup to assist with drinking. Juice, water, soda, and popsicles are readily available.? For infants on formula, please bring formula the day of surgery.? Pacifiers are allowed. Take only the following medications with a SIP of water on the morning of surgery: None DO NOT STOP ANY OF YOUR OTHER PRESCRIPTION MEDICATIONS PRIOR TO SURGERY EXCEPT THE FOLLOWING Hold all vitamins and supplements for 3 days per anesthesiologist. Medications to discontinue per physician VITAMINS AND SUPPLEMENTS Date to take last dose 09/18/25 Please no make-up, nail german, hairspray, perfume, deodorant, or body powder the day of surgery.? No jewelry (including any body piercings) or valuables the day of surgery, leave them at home.? Please take a shower or bath the night before, or the morning of, surgery with an antibacterial soap.? Wear comfortable, loose fitting clothing.? Children are encouraged to wear pajamas. - Jewelry must be removed prior to entering the operating room.? Rings and piercings that are not removed may be cut off. - The hospital will not accept responsibility for valuables.? - Please leave all valuables, including medications, at home the day of surgery. If you are going home after surgery, a licensed log driver must drive you home.? - NO public transportation without another adult if you receive anesthesia. - We recommend that an adult stay with you for 24 hours following discharge. - We also recommend that you do not drive, make important decision, drink alcoholic beverages, or take any drugs that were not prescribed by your health care provider for at least 24 hours after your discharge time. For Pediatric surgeries, we recommend two adults accompany the child home. Follow any additional instructions given to you from your surgeon. Telephone instructions given to Patient- Deidra La and asked if any additional questions and then verbalized understanding. Patient advised to call surgeon office or pre surgery nurse liaison [phone] if any additional questions.
[2025-09-15 16:13] VITALS: BMI 26.9
[2025-09-21] VITALS (10 sets, daily range): BP systolic 103–137; BP diastolic 53–72; PULSE 53–86; RESP 12–18; TEMP 36.1–36.4; O2SAT 100
--- OUTSIDE RECORDS SUMMARY | 2025-09-21 00:37 | XMS_ITS | Clinical Summary ---
Author Organization [facility] Address [address] [place] [address] Care Team Providers Care Project Admin Name Role Phone Shadia Sanderson MD Primary Care Provider [phone] Source Comments [facility],non-owned Affiliates and Associated Physician Practices is amultiple site organization consisting of ambulatory clinics and hospital sitesin [place], [place], [place] and [place]. This disclosure is being madepursuant to the Care Everywhere program and may not contain all information available regarding this patient. Last updated 18.[facility] Allergies Active Allergy Reactions Criticality Noted Date Comments Penicillins Unknown 08/05/2020 Medications * Be aware that medications may not be up to date on this document. Alwaysverify current medications with the patient. 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 Gender Identity Not on file Sexual Orientation Not on file Last Filed Vital Signs Vital Sign Reading Time Taken Comments Blood Pressure 122/82 08/05/2020 3:22 PM PARACHUTE RIGGER Pulse 95 08/05/2020 3:22 PM PARACHUTE RIGGER Temperature 37.2 C (98.9 F) 08/05/2020 3:22 PM PARACHUTE RIGGER Respiratory Rate 14 08/05/2020 3:22 PM PARACHUTE RIGGER Oxygen Saturation 97% 08/05/2020 3:22 PM PARACHUTE RIGGER Inhaled Oxygen Concentration - - Weight 88.5 kg (195 lb) 08/05/2020 3:22 PM PARACHUTE RIGGER Height 172.7 cm (5' 8) 08/05/2020 3:22 PM PARACHUTE RIGGER Body Mass Index 29.65 08/05/2020 3:22 PM PARACHUTE RIGGER Plan of Treatment Health Maintenance Due Date Last Done Comments COLOGUARD (AGES 45-75) - COL ON CA SCREENING 1978 COLON MONITORING 1978 COLONOSCOPY - COLON CA SCREENING 1978 CT COLONOGRAPHY - COLON CA SCREENING 1978 Colorectal Cancer Screening 1978 FIT - COLON CA SCREENING 1978 FLEX SIG - COLON CA SCREENING 1978 LIPID TESTING 1978 MAMMOGRAM 1978 HIV SCREENING 1993 HEPATITIS C SCREENING 06/16/1996 DTAP/TDAP/TD VACCINES (1 - Tdap) 1997 HEPATITIS B VACCINE (1 of 3 - 19+ 3-dose series) 1997 PAP SMEAR 1999 SCREENING FOR DIABETES 08/05/2020 DEPRESSION SCREENING 10/05/2024 COVID-19 VACCINE (1 - 2024-2 6 season) 2025 INFLUENZA VACCINE (#1) 2025 ZOSTER VACCINE (1 of 2) 2028 HIB VACCINE Aged Out No longer eligi ble based on patient's age to complete this topic HPV VACCINE Aged Out No longer eligi ble based on patient's age to complete this topic MENINGOCOCCAL (Group B) VACC INE SHARED DECISION-MAKING Aged Out No longer eligibl e based on patient's age to complete this topic MENINGOCOCCAL GROUPS A/C/Y/W VACCINE Aged Out No longer eligible b ased on patient's age to complete this topic PNEUMOCOCCAL VACCINE Aged Out No long er eligible based on patient's age to complete this topic Insurance [place] [employer] [employer] [place] [employer] [place] Member Subscriber Plan / Payer (Ef fective 2022-Present) Name:Evette Tolbert Member ID:[id number] Relation to Subscriber:Self Name:Evette Tolbert Subscriber ID:[id number] Payer ID:Not on file Type:PPO Address: [facility] [id number] [place] [id number] SELF PAY NO INSURANCE Member Subscriber Plan / Payer (Ef fective for All Dates) Name:Evette Tolbert Member ID:Not on file Relation to Subscriber:Not on file Name:EVETTE TOLBERT Subscriber ID:Not on file Address: [address] [place] [id number] Payer ID:Not on file Group ID:Not on file Type:Self Pay Address: [place], [place] Care Teams Project Admin Relationship Specialty Start Date End Date Shadia Sanderson MD [address] [place], [place] [id number] PCP - General Family Medicine 08/05/20
--- OUTSIDE RECORDS SUMMARY | 2025-09-21 00:37 | XMS_ITS | Clinical Summary ---
Author Organization [facility] Address [address] [place] [id number] Care Team Providers Care Cutter Operator Helper Name Role Phone Shadia Sanderson MD Primary Care Provider [phone] Allergies No known active allergies Medications NUVARING [...] Treatment Not on file Insurance [employer] [facility] BLUE ACCESS CHOICE [place] Care Teams Cutter Operator Helper Relationship Specialty Start Date End Date Shadia Sanderson MD PCP - General Family Medicine 02/14/19
[2025-09-21] MEDS: LACTATED RINGERS 1,000 ML 30 ML IV CONT (06:20)
[2025-09-21] MEDS: TRANEXAMIC ACID 1,000MG/ISO100 1,000 MG/100 ML BAG 200 MG IVPB (06:22)
--- NOTE | 2025-09-21 06:49 | WPDANESEPPF ---
Anes - Initial Pre Proc Eval Procedure: Operation Date: 09/21/25 07:30 Proposed Procedures p Bilateral Medial Thigh Lift, - Corey Johnson MD s Revision Upper Abdomen with Liposuction - Corey Johnson MD Date/Time: 09/21/25 06:49 Surgeon: Corey Johnson MD Pre Op Diagnosis: skin laxity Patient Data Age: 45 Gender: F Height: 1.73 m Weight: 82.7 kg Last Vital Signs Temp 36.1 C L 09/21/25 06:00 Pulse 83 09/21/25 06:00 Resp 18 09/21/25 06:00 BP 111/53 L 09/21/25 06:00 Pulse Ox 100 09/21/25 06:00 O2 Del Method Room Air 09/21/25 06:00 Allergies Allergy/AdvReac Type Severity Reaction Status Date / Time meperidine Allergy Mild RESPIR. Verified 09/15/25 15:56 DISTRESS Penicillins Allergy Unknown Unknown Verified 09/15/25 15:56 adhesive tape AdvReac Mild REDNESS TO Verified 09/15/25 15:56 AREA IF ON FOR AWHILE Skin Glue Allergy Rash Uncoded 09/15/25 16:15 Home Medications ?Medication ?Instructions ?Recorded ?Confirmed ?Type cholecalciferol (vitamin D3) 250 250 mcg PO DAILY 06/08/25 09/21/25 History mcg (10,000 unit) capsule Laboratory Tests 09/21/25 06:10 Cotinine Negative Patient hx anesthesia problems: none Family hx anesthesia problems: none Results Review: All pre-operative results and documents have been reviewed as part of the pre-operative evaluation. [facility] Past Medical History Medical History Bilateral hand pain Encounter for medication management Counseling on health promotion and disease prevention Inflammatory arthritis Anal fissure External hemorrhoids Family hx of colon cancer Colon cancer screening Atypical chest pain Epigastric burning sensation IT band syndrome Medial meniscus tear Lateral epicondylitis Left knee pain Left ankle sprain History of right tennis elbow Right elbow pain Left knee DJD Surgical History Surgical History Hx of cosmetic surgery 2023 2024 History of abdominoplasty History of hysteroscopy With D&C 2017 benign H/O LEEP 2017 for mild dysplasia H/O tubal ligation Family History Family History Mother Hypertension Father Hypertension Sibling Asthma, Onset Age: 32 Other Arthritis Social History Social History Smoking status: Never smoker Second hand tobacco smoke exposure: No Alcohol intake: current Alcohol use details: socially Substance use type: does not use Lack of Transportation: No Lack of Food: Never True Current Housing: I Have Housing Concerned About Future Housing: No Difficulty Paying Gas/Electric Bills: No Difficulty Paying for Meds: No Currently Unemployed: No Education: Decline to Answer Difficulty w/ Childcare or Family Care: No Living arrangements: with family Additional living arrangements comments: with sp Gender identity (if verbalized by the patient): Female Spiritual care concerns: No Anes - Eval Final PreProcedure Day of Procedure 09/21/25 06:49 Patient weight: overweight Heart: regular rate and rhythm Lungs: clear to auscultation Airway: Mallampati scale class II Neurological: alert and oriented Last oral intake: >/= 8 hours ASA classification: II Emergent: no Anesthetic plan: proceed Anesthesia type and monitoring: general LMA and standard monitoring Results Review: All pre-operative results and documents have been reviewed as part of the pre-operative evaluation. Informed Consent: The patient's anesthetic plan and its attendant risks and benefits were discussed with the patient/family/POA. Questions were solicited and answers provided to the satisfaction of the patient/family/POA.
[2025-09-21] MEDS: SCOPOLAMINE 1 MG PATCH 1 PATCH TRANSDERM (06:51)
[2025-09-21 07:01] LABS: BEDSIDEPREGUCG Negative (Negative)
--- NOTE | 2025-09-21 07:09 | WPDHPUPDATE1 ---
History and Physical Update Update Date/Time: 09/21/25 07:09 History and Physical has been reviewed, including an updated exam of the patient. There are NO changes in the patient's condition. Risks, benefits, and alternatives have been discussed and questions answered. Patient agrees to proceed with procedure.
--- NOTE | 2025-09-21 07:23 | P.OP_ITS ---
Procedure Note - Detailed Date of Procedure 09/21/25 Pre-op Diagnosis skin laxity Post-op Diagnosis Same Procedure Performed 1. Bilateral medial thigh lift 2. Abdominal suction lipectomy revision / abdominal scar revision Surgeon Corey Johnson MD Anesthesia General Findings Abdomen Tumescent: 1,000 cc Lipoaspirate: 300 cc Vaser 3:56 at 60% Right thigh Tumescent: 1,000 cc Lipoaspirate: 1050 cc Vaser 6:50 at 60% Left thigh Tumescent: 1,000 cc Lipoaspirate: 1100 cc Vaser 6:50 at 60% Description of Procedure Here for the above procedures. Preoperatively risks, benefits, alternatives were discussed again today in extensive detail. I want to be very realistic about the risks involved as well as expectations. Made sure answered all of their questions to satisfaction. They voiced a clear understanding. Consent obtained. Patient was marked in the preoperative holding area with their verification. Taken to the operating placed supine on the operating table. Anesthesia was provided by anesthesiology. Prepped and draped in a standard sterile fashion. Surgical time-out was taken. Stab incisions were made and tumescent solution was infiltrated. Abdomen Protective port sites were placed and wet laps used to protect the skin. Once adequate time was allowed for hemostasis Vaser was utilized in a fanning manner to protect from thermal injury. A 4mm vidal cannula were utilized to complete suction lipectomy in multiple planes and passes. Suction lipectomy continued to result based on pre-operative planning, intra-operative observation, and rolling pinch test which were in full agreement. This was upper abdomen and left lower (small volume at the left lower). A 10 blade was used to excise the upper vertical scar. This was closed with 2-0 Quill, 3-0 stratafix, running subcuticular 4-0 Monocryl and Steri-strips. Thighs Protective port sites were placed and wet laps used to protect the skin. Once adequate time was allowed for hemostasis Vaser was utilized in a fanning manner to protect from thermal injury. A 4mm vidal cannula were utilized to complete suction lipectomy in multiple planes and passes. Suction lipectomy continued to result based on pre-operative planning, intra-operative observation, and rolling pinch test which were in full agreement. Starting proximal to distal a 10 blade was used to excise the intervening skin and this was tacked as we proceed to ensure good closure. This was closed using a 2-0 Quill, 3-0 strata fix, running subcuticular 4-0 Cecil cryl, and steri-strips in groin / brijjits. Dressings were placed. Tolerated the procedure well. Taken to the PACU without difficulty. All instrument sponge counts were correct at the end of the case. Estimated Blood Loss 50 Drains No Packing No Pathology None sent Complications No immediate complications Condition Stable Disposition PACU
[2025-09-21] MEDS: ceFAZolin 2 GM in SODIUM CHLORIDE 0.9% IV 50 ML 100 ML IVPB (07:34)
[2025-09-21] MEDS: LACTATED RINGERS IRRIG 1,000 ML, LIDOCAINE 1% LOCAL INJ 50 ML, EPINEPHrine HCL INJ 1 MG... INFILTRATE (07:37)
[2025-09-21] MEDS: HYDROmorphone HCL INJ (*CRX) 1 MG/ML SYR 0.25 MG IV PUSH ×4 (12:26→12:48)
[2025-09-21] MEDS: oxyCODONE HCL (*CRX) 5 MG TAB IR PO (13:30)
== END 2025-09-21 15:07 | disposition home or self-care (01) ==
PROVIDERS: PCP Student in an Organized Health Care Education/Training Program; Visit Provider Surgery Plastic and Reconstructive Surgery
PROC: (CPT 15832; principal; 2025-09-21 07:30)
PROC: (CPT 15877; 2025-09-21 07:30)
DX: Z41.1 Encounter for cosmetic surgery (principal); L57.4 Cutis laxa senilis
CPT/HCPCS: 15832; 15879; 15877; 11406; 12032; 80307; J0690; A9270; J0166; J1171; J2003; J2250; J2405; J2704; J3010; J3290; J7120